=== PATIENT | male | born 1945 | race Caucasian/White ===

== ENCOUNTER 2025-07-08 08:52 | Outpatient (AMB) | payer MEDICARE, BC, SELFPAY ==
--- OUTSIDE RECORDS SUMMARY | 2024-06-01 07:18 | XMS_ITS | Encounter Summary ---
Author Organization [facility] [place] [address] Care Team Providers Care Cake Washer Name Role Phone Rodrigo Winston MD Primary Care Provider [phone] Encounter Details Date Type Department Care Team ([facility] st Contact Info) Description 06/01/2024 8:18 AM EDT Hospital Encounter TH HISTORIC ENCOUNTERS EASTERN CONVERSION ONLY Barron Whitten MD [address] [facility] [address] [place] [address] Social History Tobacco Use Types [...] care for your loved ones. For example, childhood development teacher or elderly care for an older adult? [...] Care Team (Late st Contact Info) Description 07/19/2025 4:30 PM EST Office Visit Endocrinology - [address] [address] Anna Rodriguez PA [address] [place] [address] 07/26/2025 1:30 PM EST Office Visit Internal Medicine - [address] [address] Roxana Correa NP [address] [place] [address] 11/17/2025 11:00 AM EDT Ancillary Procedure [facility] - [facility] [address] [facility] [address] [place] [address] 03/09/2026 11:30 AM EDT Office Visit Vascular Surgery - [place] 300 [facility] [address] [place] [address] Guicho Russell MD [address] [place] [phone] Scheduled Procedures Name Priority Associated Diagnoses Date/Ti me EXCISION LESION EAR Basal cell carcinoma, face REPAIR LACERATION Basal cell carcinoma, face documented as of this encounter Visit Diagnoses Not on filedocumented in this encounter Care Teams Cake Washer Relationship Specialty Start Date End Date Rodrigo Winston MD PCP - General Internal Medicine 09/08/19 02/28/25 documented as of this encounter
--- OUTSIDE RECORDS SUMMARY | 2024-08-03 09:15 | XMS_ITS ---
Author Organization [facility] Address [address] [place] [address] Care Team Providers Care Slimer Name Role Phone Lalita Cintron Primary Care Provider Chacha Allen [phone] Ang Encounters Encounter Location Date Provider Diagnosis [address] [address] 08/03/2024 Chacha Lo Plan Of Treatment Next Appt Details Provider Name:Chacha ac, 07/26/2025 11:00:00 AM, [address] [place] [address], [phone], Progress Notes * Gm BARBA RDOB: [birth year] (79 yo M)Acc No.[id number]:08/03/2024 Progress Note Patient: Rudy Gm BELTRÁN Provider: Elva Lo DPM :1945 A ge:78 [...] Sign off status: Pending * Provider: Elva Lo DPM Date: 10/04/2023 Generated for Carlos garcia/Aga/Margy on: 09/07/2024 08:58 AM EST
--- NOTE | 2025-07-08 08:51 | A.PHYSOV_ITS ---
Vital Signs 07/08/25 08:56 Height 6 ft Weight 18 lb BMI 2.4 BP 140/71 H Intake Visit Reasons: Left Lumbar TFE L4 Intake Note: Patient is a 79 year old male in office today for Left L4 Transforaminal Epidural Injection. 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 Skin over lumbosacral area was prepped and draped in usual sterile manner. Left L4 pedicle was visualized utilizing fluoroscopy. Five inch 22 gauge spinal needle was introduced percutaneously and advanced towards the pedicle at about 6 o'clock position. Once level of neural foramina was reached, needle placement was verified utilizing 3 cc of Omnipaque contrast solution. Excellent flow through the neural foramina and epidural spread was identified without evidence of vascular uptake. Total volume of 6 cc containing 2 cc of 1% lidocaine, 40 mg of triamcinolone and normal saline solution were injected after negative aspiration for blood and cerebrospinal fluid. Radiation exposure was documented in the chart. Lumbar transforaminal Epidural Steroid Inj- use with FL Gd: 51888 - Single Procedure code (CPT) selection complete Office Meds Kenalog 40 mg/mL suspension for injection Performing Provider: David Qureshi DO [place]forming [place] [facility] [place] [facility] Administered by: David Qureshi DO on 07/08/25 08:54 Dose Route Admin Location Dispensed Lot Number Expiration Date [facility] [employer] 40 mg epidural 1 mL [address]-2 [employer] Total Dispensed Waste 1 mL 0 % lidocaine (PF) 10 mg/mL (1 %) injection solution Performing Provider: David Qureshi DO Performing Location: [facility] Administered by: David Qureshi DO on 07/08/25 08:54 Dose Route Admin Location Dispensed Lot Number Expiration Date [facility] [employer] 40 mg epidural 5 mL [id number] [place] [employer] Total Dispensed Waste 5 mL 20 % Omnipaque 300 300 mg iodine/mL intravenous solution Performing Provider: David Qureshi DO Performing Location: [facility] Administered by: David Qureshi DO on 07/08/25 08:54 Dose Route Admin Location Dispensed Lot Number Expiration Date [facility] [employer] Professor 3 mL epidural 10 mL [id number] [facility] Total Dispensed Waste 10 mL 70 % Assessment & Plan Assessment & Plan (1) Lumbar radiculitis: Code(s): M54.16 - Radiculopathy, lumbar region Category: Medical Plan: Left L4 TFESI (2) History of heart surgery: Code(s): Z98.890 - Other specified postprocedural states Plan: Left L4 TFESI Plan Left L4 TFESI Orders: Orders FL Gd Lumbar Transforaminal In Today M54.16 - Radiculopathy, lumbar region AMB Lumbar transforaminal Epidural Steroid Injection Today M54.16 - Radiculopathy, lumbar region Coding Level of Care Code Procedure Only Diagnoses Lumbar radiculitis M54.16 History of heart surgery Z98.890 CPT Codes Lumbar transforaminal Epidural Steroid I - CPT TRANSFORM: 17973 - Single ([id number])
[2025-07-08 08:56] VITALS: BP 140/71
--- OUTSIDE RECORDS SUMMARY | 2025-07-08 08:58 | XMS_ITS | Encounter Summary ---
Author Organization [facility] Address [address] [place] [address] Care Team Providers Care Furniture Upholsterer Apprentice Name Role Phone Lalita Cintron MD Primary Care Provider [phone] Reason for Visit * Reason Onset Date Comments DME Request 07/05/2025 [employer] Encounter Details Date Type Department Care Team (Late st Contact Info) Description 07/05/2025 Telephone Internal Medicine - [facility] [address] [place], [place] [phone] Lalita Cintron MD [address] [facility] [place] Social History Tobacco Use Types Packs/Day Years [...] care for your loved ones. For example, early childhood lead teacher or elderly care for an older [...] PM EST documented as of this encounter Progress Notes * Rusty Briones [place] - 07/06/2025 3:14 PM EST Durable medical equipment prescription request has been faxed to the DME Company :[employer] / diabetic shoes With cover sheet, demographics and nay notes Confirmation was received * Carla George - 07/05/2025 3:31 PM EST Orders from [employer] placed in DME bin. Please complete and fax back to [phone]. Thank you. documented in this encounter Plan of Treatment Upcoming Encounters Date Type Department Care Team (Late st Contact Info) Description 07/19/2025 4:30 PM EST Office Visit Endocrinology - [address] [address] Anna Rodriguez PA [address] [place] [address] 07/26/2025 1:30 PM EST Office Visit Internal Medicine - [address] [address] Roxana Correa NP [address] [place] [address] 11/17/2025 11:00 AM EDT Ancillary Procedure [facility] - [facility] [address] [facility] [address] [place] [address] 03/09/2026 11:30 AM EDT Office Visit Vascular Surgery - [place] [address] [facility] [address] [place] [address] Guicho Russell MD [address] [place] [phone] Scheduled Procedures Name Priority Associated Diagnoses Date/Ti me EXCISION LESION EAR Basal cell carcinoma, face REPAIR LACERATION Basal cell carcinoma, face documented as of this encounter Visit Diagnoses Not on filedocumented in this encounter Additional Health Concerns Assessment Noted Time PHQ-9 Depression Total Score: 0 12/30/19 9:51 AM EDT documented as of this encounter Care Teams Furniture Upholsterer Apprentice Relationship Specialty Start Date End Date Lalita Cintron MD [address] [facility] [place] [phone] PCP - General Internal Medicine 03/01/25 documented as of this encounter
--- OUTSIDE RECORDS SUMMARY | 2025-07-08 08:58 | XMS_ITS | Clinical Summary ---
Author Organization 175 [facility] Address [address] [place] [address] Phone Care Team Providers Care Health Program Specialist Name Role Phone Lalita Cintron MD Primary Care Provider [phone] Allergies Active Allergy Reactions Criticality Noted Date Comments House Dust 12/18/2018 Other reaction(s): UNKNOWN Mold 08/01/2021 Other 08/01/2021 Seasonal Allergies Pollen Extracts Hives 06/24/2024 Tree Pollen-Norton, White 03/03/2025 Medications blood-glucose meter kit 1 Kit by Does not apply route daily. Use to check blood sugar Dx E11.29 024 Active docusate sodium (COLACE) 100 mg tablet Take 1 Tablet by mouth as needed. - Active fluticasone propionate (FLONASE) 50 mcg/actuation nasal spray USE 1 SPRAY NASALLY DAILY 022 Active FreeStyle Test test strip glucose blood test strips (FREESTYLE TEST STRIPS) strip TEST 3 TIMES DAILY 024 Active pen needle, diabetic 31 gauge x 5/16 needle Insulin Pen Needle (B-D ULTRAFINE III SHORT PEN) 31G X 8 MM Misc Use to inject basaglar twice daily 020 Active insulin syringe-needle U-100 1 mL 30 gauge x 1/2 syringe Insulin Syringe-Needle U-100 (B-D INS SYR ULTRAFINE 1CC/30G) 30G X 1/2 1 ML Misc USE DIRECTED 015 Active mv-min/folic/K1 /lycopen/lutein (CENTRUM SILVER MEN ORAL) Multiple Vitamins-Minerals (Centrum Silver 50+Men) Tab Take 1 Tablet by mouth daily. Active polyethylene glycol (MIRALAX) 17 gram packet Take by mouth as needed. Active guaifenesin/pse udoephedrne HCl (MUCINEX D ORAL) PRN congestion Activ e zoledronic acid (RECLAST) 5 mg/100 mL piggybackIndica tions:Osteoporo sis, unspecified osteoporosis type, unspecified pathological fracture presence Infuse 100 mL (5 mg total) into a venous catheter 1 (one) time for 1 dose. 100 mL 024 Active Additional Information Patient not taking.Reported on 06/09/2025 tamsulosin (FLOMAX) 0.4 mg 24 hr capsule TAKE 1 CAPSULE DAILY 90 capsule 1 025 Active gabapentin (NEURONTIN) 300 mg capsule TAKE 1 CAPSULE AT BEDTIME 90 capsule Active acetaminophen (Tylenol 8 Hour) 650 mg 8 hr tablet Take 1 tablet (650 mg total) by mouth every 8 (eight) hours if needed for mild pain. Do not crush, chew, or split. Active insulin aspart (NovoLOG Flexpen U-100 Insulin) 100 unit/mL (3 mL) injection pen Inject 2-3 units sc at with meals 45 mL 025 Active amLODIPine (NORVASC) 5 mg tablet TAKE 1 TABLET DAILY 90 tablet 025 Active pantoprazole (PROTONIX) 40 mg EC tablet TAKE 1 TABLET ONCE DAILY; DO NOT CRUSH, CHEW, OR SPLIT 90 tablet 025 Active simvastatin (ZOCOR) 40 mg tablet TAKE 1 TABLET ONCE DAILY 90 tablet 025 Active Eliquis 5 mg tablet TAKE 1 TABLET TWICE A DAY 180 tablet 025 Active insulin glargine,hum.re c.anlog (Basaglar KwikPen U-100 Insulin) 100 unit/mL (3 mL) injection pen INJECT SUBCUTANEOUSLY 42 UNITS ONCE DAILY 45 mL 025 Active polyethylene glycol (Golytely) 236-22.74-6.74 -5.86 gram solution Take 4L by mouth once for one dose. May substitue any PEG. Starting at 2PM the day before your procedure drink 1 8oz glasses at your own pace until you complete half of the gallon. Finish half of the gallon at 8PM. 4000 mL Active bisacodyL (DULCOLAX) 5 mg EC tablet Take 2 tablets by mouth right before beginning bowel prep. See instructions provided by the office 2 tablet Active Additional Information Patient not taking.Reported on 06/09/2025 glucosamine/cho ndr caballero A sod (OSTEO BI-FLEX ORAL) Take by mouth. Activ e losartan-hydroC HLOROthiazide (Hyzaar) 100-25 mg per tablet Take 1 tablet by mouth 1 (one) time each day. Active aspirin 81 mg EC tablet Take 1 Tablet by mouth daily. 023 2024 Discontinued(P rescriber Discontinued) losartan-hydroC HLOROthiazide (Hyzaar) 100-12.5 mg per tablet Take 1 tablet by mouth 1 (one) time each day. 90 each 1 025 2024 Discontinued Active Problems Problem Noted Date Diagnosed Date Granulomatous disease, chronic 03/22/2025 Atherosclerosis of [place] ar teries of extremities with rest pain, right leg (CMS/HCC V24, CMS/HCC V28) 03/22/2025 Murmur, cardiac 03/22/2025 Polyp of colon 03/02/2025 Basal cell carcinoma, face 03/02/2025 History of basal cell carcinoma 03/02/2025 Anticoagulated on Eliquis 03/02/2025 PAD (peripheral artery disease) (CMS/HCC V24) Assessment & Plan (01/05/2025 5:10 PM EDT): Continue current regimen of aspirin, simvastatin. Patient is being monitored by vascular surgery. Coronary artery disease invo lving [place] coronary artery of [place] heart without angina pectoris 11/24/2023 Overview (01/19/2025): Cardiac catheterization August 2023 following abnormal nuclear stress test showing small area of ischemia in the inferolateral wall demonstrated mild luminal irregularities of the left main, LAD and RCA with a 90% stenosis of the first OM medical therapy recommended Assessment & Plan (06/09/2025 10:42 AM EDT): Patient has a history of coronary artery disease, he had a left heart catheterization prior to his TAVR. Cardiac catheterization revealed 90% stenosis in the proximal subsection of OM1. Rest of the coronary arteries were free from any significant disease. He continues with no chest discomfort or shortness of breath. At this time he will continue on Eliquis, statin and amlodipine. Current [place] guidelines, including those from the [place] [employer] and [place] [employer], recommend OAC monotherapy (preferably with a DOAC) over combination therapy in patients with AF and stable CAD, unless there is a specific indication for APT such as recent stent thrombosis. Aspirin should be discontinued after 1 year post-PCI in these patients. As such, aspirin will be stopped today. Patient advised to seek emergency medical attention by calling 911 if they were to develop severe dyspnea, chest pain that did not resolve with rest or nitroglycerin, or if they were to faint. Assessment & Plan (02/02/2025 7:25 AM EDT): Catheterization from 2023 showed isolated 90% stenosis of OM1 with no other significant disease. Echocardiogram from 2024 showed preserved LV systolic function. No anginal symptoms. Continue with aspirin, simvastatin, amlodipine, losartan- HCTZ and apixaban. We discussed risk reduction through lifestyle choices including healthy diet, routine exercise and weight management. Orders: ECG 12 lead Pacemaker 11/24/2023 Overview (01/19/2025): October 2023 - successful placement of dual-chamber pacemaker Assessment & Plan (02/02/2025 7:25 AM EDT): Functioning well. No significant arrhythmias. Continue to monitor through [facility] device clinic. Paroxysmal atrial fibrillation (CMS/HCC V24, CMS /HCC V28) 11/24/2023 Assessment & Plan (06/09/2025 10:42 AM EDT): He has history of paroxysmal atrial fibrillation. He has an elevated chads Vascor of 5. He continues on Eliquis 5 mg twice daily. Will continue monitoring via the device. Assessment & Plan (02/02/2025 7:25 AM EDT): Detected on device. Asymptomatic. [id number] 5. Continue with apixaban. Assessment & Plan (06/30/2024 12:30 PM EST): Continue anticoagulation with apixaban. Rate controlled. Kidney lesion 11/04/2023 Overview (05/18/2024): 1.2 x 1.3 x 1.2 cm lesion lower pole left kidney. Referral to urology. Assessment & Plan (06/30/2024 12:30 PM EST): Being monitored by urology. Stable. S/p TAVR (transcatheter aort ic valve replacement), bioprosthetic 09/12/2023 Overview (01/19/2025): November 11, 2023 - successful transfemoral TAVR utilizing a 26 mm S3 bioprosthetic valve with Dr. Ramsey at [facility]; complication of brief heart block post deployment, but then no postoperative complications and the patient was discharged on aspirin monotherapy, placed on a Zio patch and found to have intermittent complete heart block status post implantation of a dual-chamber permanent pacemaker 11/24/24 TRANSTHORACIC ECHOCARDIOGRAM (TTE) COMPLETE (CONTRAST/BUBBLE/3D PRN) 11/30/2024 11/24/2024 Interpretation Summary Left Ventricle: Left ventricle cavity size is normal. There is mild concentric hypertrophy. Systolic function is normal with an ejection fraction of 60-65%. There are no regional LV wall motion abnormalities. There is Grade I (mild) diastolic dysfunction. Left Atrium: Left atrium cavity size is normal. Right Ventricle: Right ventricle cavity appears normal. Right Atrium: Right atrium cavity is normal. Aortic Valve: The valve has been surgically replaced. There is a 26mm mm TAVR bioprosthetic valve implanted on 11/11/2023. The prosthetic valve appears to be functioning normally. There is no regurgitation. Signed by: Maxi Ramsey MD on 11/30/2024 4:56 PM Assessment & Plan (06/09/2025 10:42 AM EDT): Patient has history of severe aortic stenosis status post TAVR. He has dentures, therefore not needing prophylaxis prior to dental cleanings. He continues on Eliquis. His most recent echocardiogram shows that his valve is in the correct position and functioning normally. Assessment & Plan (02/02/2025 7:25 AM EDT): Successful TAVR using 26 mm S3 Bioprosthetic valve on 11/11/23. The patient continues to enjoy symptomatic improvement following his TAVR. His valve is working well on exam, by echocardiogram and by symptoms. Instructed him about the need for prophylactic antibiotics prior to dental work. Assessment & Plan (01/05/2025 5:10 PM EDT): He is scheduled to follow-up with cardiology. Clinically is euvolemic. No changes to regimen of aspirin, simvastatin, amlodipine, losartan-hydrochlorothiazide. He is on full dose anticoagulation with Eliquis for history of atrial fibrillation. 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 08/01/2021 Diastolic dysfunction 07/27/2021 Diabetic retinopathy ([facility] V24, [facility] V28) 04/12/2021 Overview (05/18/2024): OD>OS [facility] Squamous cell carcinoma of scalp 04/18/2020 Microalbuminuria 08/14/2018 Type 2 diabetes mellitus wit h cataract ([facility] V24, [facility] V28) 05/11/2018 Assessment & Plan (06/30/2024 12:30 PM EST): Diabetic diet discussed. Patient will continue current regimen of insulin glargine, aspart. He is up-to-date with his diabetic eye exam. Orders: Hemoglobin A1c; Future Fernando's esophagus 04/30/2018 Assessment & Plan (01/05/2025 5:10 PM EDT): Continue pantoprazole. Referral to GI placed to determine next EGD. 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 Follow-up with GI and will be undergoing EGD and colonoscopy next year. GERD (gastroesophageal reflux disease) 8 Hyperlipidemia 04/30/2018 Assessment & Plan (06/09/2025 10:42 AM EDT): Continue on statin. I have reviewed with the patient the importance of a heart healthy lifestyle which includes eating a low-fat low-salt diet, getting regular exercise, maintaining a healthy weight, not smoking, and following up with routine medical care. Assessment & Plan (02/02/2025 7:25 AM EDT): Continue on simvastatin. Assessment & Plan (06/30/2024 12:30 PM EST): Follow low-cholesterol diet. Continue simvastatin. Hypertension 04/30/2018 Assessment & Plan (06/09/2025 10:42 AM EDT): Blood pressure is mildly elevated today, he recently had his hydrochlorothiazide increased to 25 mg from 12.5. He brings a log from home which shows overall good control. He will continue to monitor. Assessment & Plan (02/02/2025 7:25 AM EDT): Controlled. Continue with amlodipine, losartan-HCTZ. Assessment & Plan (06/30/2024 12:30 PM EST): Follow low-sodium diet. Continue amlodipine, losartan-hydrochlorothiazide. Stenosis, cervical spine 04/30/2018 Ataxic gait 12/23/2017 Allergic rhinitis 02/20/2017 Diverticulosis 02/20/2017 Vocal cord paralysis, unilateral partial 016 Calcification of lung 02/08/2015 Cataract 11/04/2013 Resolved Problems Problem Noted Date Diagnosed Date Resolved Date Aspirin long-term use 03/02/20252024 History of squamous cell carcinoma 03/02/2025 03/22/2025 Bacteremia due to Enterococcus 05/18/2024 03/22/2025 Sepsis ([facility] V24, [facility] V28) 05/18/2024 03/22/2025 Systemic inflammatory respon se syndrome ([facility] V24, [facility] V28) 05/18/2024 03/22/2025 Type 2 diabetes mellitus wit h hyperglycemia ([facility] V24, [facility] V28) 01/13/2024 03/22/2025 Gallbladder mass 11/25/2023 03/22/2025 Assessment & Plan (03/22/2025 1:42 PM EDT): Cholecystectomy and the mass was a soft squishy gallstone Abnormal echocardiogram 03/02/2021 0812/2024 Internal hemorrhoids 08/15/2014 025 Encounters Date Type Department Care Team Description 07/05/2025 Telephone Internal Medicine [facility] [address] [place] [address] Lalita Cintron MD 07/05/2025 Telephone Internal Medicine - [address] [place] [address] Lalita Cintron MD 06/24/2025 11:50 AM EST Ancillary Procedure [facility] Cardiology [facility] [address] [place] [address] 06/21/2025 Telephone Gastroenterology - [address] [place] [phone] Hamilton Curtis MD 06/21/2025 Telephone Internal Medicine - [address] [place] [address] Lalita Cintron MD 06/15/2025 Telephone Internal Medicine - [address] [place] [address] Claudette Gong RN 06/09/2025 9:10 AM EDT Office Visit [facility] Cardiology [facility] - [facility] [address] [place] [phone] Alona Johnson NP Coronary artery disease involving [place] coronary artery of [place] heart without angina pectoris (Primary Dx); Paroxysmal atrial fibrillation (CMS/HCC V24, CMS/HCC V28); S/p TAVR (transcatheter aortic valve replacement), bioprosthetic; Hypertension, unspecified type; Hyperlipidemia, unspecified hyperlipidemia type 05/24/2025 9:38 AM EDT - 05/24/2025 11:59 PM EDT Hospital Encounter [facility] MRI [address] [place] [phone] Neoplasm of uncertain behavior of left kidney Discharge Disposition: Home or Self Care 05/17/2025 Telephone Plastic & Reconstructive Surgery [facility] [address] [place] [phone] Rylie Rudolph SC 05/04/2025 1:26 PM EDT Anesthesia Event [facility] Endoscopy [address] [place] [phone] Mariano Díaz MD 05/04/2025 12:12 PM EDT - 05/04/2025 11:59 PM EDT Hospital Encounter [facility] Endoscopy [address] [place] [phone] Hamilton Curtis MD Saliga, Jesse L, MD Dusza, Sara, CRNA Polyp of colon, unspecified part of colon, unspecified type; Gastroesophageal reflux disease, unspecified whether esophagitis present; Fernando's esophagus without dysplasia; Diverticulosis Discharge Disposition: Home or Self Care 05/03/2025 Telephone General Surgery - [address] [place] [phone] Gentry Vyas DO 04/20/2025 Telephone Internal Medicine - [address] [place], [place] [phone] Lalita Cintron MD 04/19/2025 Telephone Internal Medicine - [address] [facility] [place], [place] [phone] Lalita Cintron MD 04/13/2025 Telephone Internal Medicine - [address] [place] [address] Lalita Cintron MD 04/07/2025 Telephone Gastroenterology - [place] [address] [place] [address] Shannan Montiel LPN from Last 3 Months Immunizations Immunization Administration Dates Next Due Influenza trivalent, 0.5mL ( Fluzone High-dose) 65yo and older 08/06/2023,08/01/2022,06/05/2021,06/02 Pfizer SARS-CoV-2 COVID-19, mRNA, LNP-S, preservative free 06/12/2021,10/14/2020,09/22/2020 Pneumococcal conjugate 13 va lent (Prevnar 13, PCV13) 2mo and older 10/18/2016 Pneumococcal polysaccharide 23 valent (Pneumovax 23) 2yo and older 11/10/2019 Surgical History Surgery Date Site/Laterality Comments OTHER SURGICAL HISTORY Left PROCEDURE: HISTORY OTHER; COMMENT: hip fracture repair LUMBAR LAMINECTOMY 03/17/2023 PROCEDURE: HISTORICAL LUMB LAMINECTOMY; COMMENT: L2-3 decompression, Dr. Gutierrez CERVICAL LAMINECTOMY PROCEDURE: HISTORICAL CERV LAMINECTOMY CATARACT EXTRACTION PROCEDURE: HISTORICAL CATARACT REMOVAL OTHER SURGICAL HISTORY Left PROCEDURE: VT ARTHRP ACETBLR/PROX FEM PROSTC AGRFT/ALGRFT OTHER SURGICAL HISTORY PROCEDURE: HISTORY OTHER; COMMENT: vocal cord surgery LUMBAR LAMINECTOMY 10/2017 PROCEDURE: HISTORICAL LUMB LAMINECTOMY; COMMENT: s/p lumbar decompression at L3-4, L4-5, and L5-S1 with Dr. Rockwell CHOLECYSTECTOMY PROCEDURE: VT LAPAROSCOPY SURG CHOLECYSTECTOMY Medical History Medical History Date Comments Allergic rhinitis 02/20/2017 DX:Allergic rh initis Ataxic gait 12/23/2017 DX:Ataxic gait Fernando's esophagus 04/30/2018 DX:Fernando's esophagus Calcification of lung 02/08/2015 DX:Calcifi cation of lung Cataract 11/04/2013 DX:Cataract Diverticulosis 02/20/2017 DX:Diverticulosi s GERD (gastroesophageal reflu x disease) 04/30/2018 DX:GERD (gastroesophageal re flux disease) Hyperlipidemia 04/30/2018 DX:Hyperlipidemi a Hypertension 04/30/2018 DX:Hypertension Internal hemorrhoids 08/15/2014 DX:Internal hemorrhoids Microalbuminuria 08/14/2018 DX:Microalbumin uria Stenosis, cervical spine 04/30/2018 DX:Sten osis, cervical spine Vocal cord paralysis, unilat eral partial 02/20/2016 DX:Vocal cord paralysis, uni lateral partial Diabetic retinopathy ([facility] V24, [facility] V28) 04/12/2021 DX:Diabetic retinopathy ([facility] ); COMMENT: OD>OS [facility] Other cardiomyopathies ([facility] V24, [facility] V28) DX:Other cardiomyopathies ([facility]); COMMENT: small heart blockages 02/2023 Diabetic neuropathy ([facility] V24, [facility] V28) DX:Diabetic neuropathy ([facility]) Chronic ischemic heart disease D X:Chronic ischemic heart disease Aortic valve stenosis DX:Aortic valve stenosis Kidney lesion 11/04/2023 DX:Kidney lesion ; COMMENT: 1.2 x 1.3 x 1.2 cm lesion lower pole left kidney. Abnormal gallbladder ultrasound DX:Abnormal gallbladder ultrasound Skin cancer DX:Skin cancer A-fib ([facility] V24, [facility] V28) DX:A-fib ([facility]) S/P TAVR (transcatheter aort ic valve replacement) DX:S/P TAVR (transcatheter a ortic valve replacement) Family History Medical History Relation Name Comments Other: myelitis Brother reverse myel itis Multiple sclerosis Daughter Coronary artery disease Father Other: Other Father exposed to [employer] [place] in [facility] Prostate cancer Father Heart attack Mother Hypertension Mother Cancer of Small Bowel Sister 1 Diabetes Sister 2 Dementia Sister 3 No Known Problems Son x2 Relation Name Status Comments Brother Alive Daughter Alive Father Mother Sister 1 Sister 2 Alive Sister 3 Alive Son x2 Alive Social History Tobacco Use Types Packs/Day Years Used Date Smoking Tobacco: Former Cigarettes Smokeless Tobacco: Never Tobacco Cessation:Counseling Given: Not Answered Alcohol Use Standard Drinks/Week Comments No 0 [...] for your loved ones. For example, child nutrition assistant or elderly care for an older adult? [...] Orientation Straight 09/16/2024 1: 46 PM EST Obstetrics History Last Filed Vital Signs Vital Sign Reading Time Taken Comments Blood Pressure 140/60 06/09/2025 9:32 AM EDT Pulse 65 06/09/2025 8:57 AM EDT Temperature 36.2 C (97.2 F) 05/04/2025 1:57 PM EDT Respiratory Rate 18 05/04/2025 2:17 PM EDT Oxygen Saturation 98% 06/09/2025 8:57 AM EDT Inhaled Oxygen Concentration - - Weight 84.8 kg (187 lb) 06/09/2025 8:57 AM EDT Height 182.9 cm (6') 06/09/2025 8:57 AM EDT Body Mass Index 25.36 06/09/2025 8:57 AM EDT Plan of Treatment Upcoming Encounters Date Type Department Care Team (Late st Contact Info) Description 07/19/2025 4:30 PM EST Office Visit Endocrinology [address] [phone] Anna Rodriguez PA [address] [place] [phone] 07/26/2025 1:30 PM EST Office Visit Internal Medicine - [address] [phone] Roxana Correa NP [address] [place] [phone] 11/17/2025 11:00 AM EDT Ancillary Procedure [facility] - [facility] [address] [facility] [address] [place] [phone] 03/09/2026 11:30 AM EDT Office Visit Vascular Surgery - [place] [address] [facility] [address] [place] [phone] Guicho Russell MD [address] [place] [phone] Scheduled Procedures Name Priority Associated Diagnoses Date/Ti me EXCISION LESION EAR Basal cell carcinoma, face REPAIR LACERATION Basal cell carcinoma, face Health Maintenance Due Date Last Done Comments Diabetes: Annual Foot Exam 1955 DTaP,Tdap,and Td Vaccines (1 - Tdap) 11/20/1963 Zoster Vaccines (1 of 2) 11/20/1963 Hepatitis B Vaccines (3 of 3 - Hep B Twinrix 3-dose series) 03/29/2007 10/27/2006, 09/22/2006 RSV Immunization Adult Patients (1 - 1-dose 75+ series) 11/20/2019 Medicare Annual Wellness Visit 07/27/2022 COVID-19 Vaccine ( season) 2025 06/12/2021, 10/14/2020, 09/22/2020 Influenza Vaccine (#1) 2025 , 08/01/2022, 06/05/2021, Additional history exists Social Influencers of Health Screening 07/08/2025 07/08/2024 Diabetes: Blood Sugar Control Test (HGBA1C) 07/20/2025 01/18/2025, 09/01/2024, 04/02/2024, Additional history exists Diabetes: Annual Retina Eye Exam 10/26/2025 10/26/2024 Diabetes: Annual Urine Albumin-Creatinine Ratio (uACR) 04/05/2026 04/05/2025, 07/30/2023 Diabetes: Annual GFR (Glomerular Filtration Rate) 04/05/2026 04/05/2025, 12/14/2024, 11/09/2024, Additional history exists Hypertension/CHF/CAD Annual BMP Blood Test 04/05/2026 04/05/2025, 12/14/2024, 11/09/2024, Additional history exists Falls Risk Assessment 05/04/2026 05/04/2025 Cholesterol Screening (Lipid Panel) 04/05/2030 04/05/2025, 07/30/2023 Colorectal Cancer Screening: Colonoscopy 05/04/2030 05/04/2025, 03/16/2024, 07/07/2019 Hepatitis A Vaccines Aged Out 10/27/2006, 09/22/19 07 No longer eligible based on patient's age to complete this topic Pneumococcal Vaccine: 50+ Years Completed 11/10/2019, 10/18/2016 Depression Screening Completed 03/16/2025 HIB Vaccines Aged Out No longer eligi ble based on patient's age to complete this topic HPV Vaccines Aged Out No longer eligi ble based on patient's age to complete this topic IPV Vaccines Aged Out No longer eligi ble based on patient's age to complete this topic MMR Vaccines Aged Out No longer eligi ble based on patient's age to complete this topic Meningococcal ACWY Vaccine Aged Out N o longer eligible based on patient's age to complete this topic Meningococcal B Vaccine Aged Out No l onger eligible based on patient's age to complete this topic RSV Immunization Patients Under 20 months Aged Out No longer eligible based on patient's age to complete this topic Varicella Vaccines Aged Out No longer eligible based on patient's age to complete this topic Medical Devices Implanted Type Area Head Coach Device Identifier Shelf Expiration Date Model / Serial / Lot [facility] 2272 Assurity Mri(Tm) [id number] Implanted: (Quantity not on file) Cardiac Pacemaker [employer] 2272 ASSURITY MRI(TM) / [id number] / Procedures Procedure Name Priority Date/Time Associated Diagnosis Comments CARDIAC DEVICE CHECK- REMOTE- MURJ Routine 06/24/2025 11:45 AM EST MR ABDOMEN WO AND W CONTRAST Routine 05/24/2025 10:55 AM EDT Neoplasm of uncertain behavior of left kidney COLONOSCOPY Routine 05/04/2025 1:56 PM EDT Polyp of colon, unspecified part of colon, unspecified type Gastroesophageal reflux disease, unspecified whether esophagitis present Fernando's esophagus without dysplasia Diverticulosis EGD Routine 05/04/2025 1:56 PM EDT Polyp of colon, unspecified part of colon, unspecified type Gastroesophageal reflux disease, unspecified whether esophagitis present Fernando's esophagus without dysplasia Diverticulosis TISSUE EXAM Routine 05/04/2025 1:34 PM EDT Polyp of colon, unspecified part of colon, unspecified type Gastroesophageal reflux disease, unspecified whether esophagitis present Fernando's esophagus without dysplasia Diverticulosis MICROALBUMIN CREATININE URINE RATIO Routine 04/05/2025 8:47 AM EDT Type 2 diabetes mellitus with diabetic microalbuminuria, with long-term current use of insulin ([facility] V24, [facility] V28) CREATININE, SERUM Routine 04/05/2025 8:4 7 AM EDT Osteoporosis, unspecified osteoporosis type, unspecified pathological fracture presence LIPID PANEL WITH REFLEX TO DIRECT LDL Routine 04/05/2025 8:47 AM EDT Type 2 diabetes mellitus with diabetic microalbuminuria, with long-term current use of insulin ([facility] V24, [facility] V28) HEMOGLOBIN A1C Routine 01/18/2025 2:10 PM EDT Type 2 diabetes mellitus with diabetic microalbuminuria, with long-term current use of insulin ([facility] V24, [facility] V28) from Last 3 Months or Most Recently Relevant to Health Maintenance Results * Cardiac device check - Remote- MURJ (06/24/2025 11:45 AM EST) Date Time Interrogation Session [id number] CV DEVICE CHECK Type Interrogation Session Remote Scheduled CV DEVICE CHECK Implantable Pulse Generator [employer] CV DEVICE CHECK Implantable Pulse Generator Type IPG CV DEVICE CHECK Implantable Pulse Generator Model 2272 Assurity MRI(TM) CV DEVICE CHECK Implantable Pulse Generator Serial Number [id number] CV DEVICE CHECK Implantable Pulse Generator Implant Date 20231114 CV DEVICE CHECK Battery Remaining Percentage 88.00 CV DEVICE CHECK Battery Remaining Longevity 112.0 CV DEVICE CHECK Battery Voltage 2.990 CV D EVICE CHECK Battery CAMPGROUND CARETAKER Trigger 2.600 CV DEVICE CHECK Battery Status Middle of Service CV DEVICE CHECK Angel Statistic RA Percent Paced 49.00 CV DEVICE CHECK Angel Statistic RV Percent Paced 99.00 CV DEVICE CHECK Atrial Tachy Statistic AT/AF Timblin Percent 1.00 CV DEVICE CHECK Lead Channel Sensing Intrinsic Amplitude 5.000 CV DEVICE CHECK Lead Channel Setting Sensing Sensitivity 0.30 CV DEVICE CHECK Lead Channel Impedance Value 540 CV DEVICE CHECK Lead Channel Pacing Threshold Amplitude 0.500 CV DEVICE CHECK Lead Channel Pacing Threshold Pulse Width 0.4 CV DEVICE CHECK Lead Channel RA Pacing Threshold Date 2025-06-09 CV DEVICE CHECK Lead Channel Setting Pacing Amplitude 1.500 CV DEVICE CHECK Lead Channel Setting Pacing Pulse Width 0.4 CV DEVICE CHECK Lead Channel Sensing Intrinsic Amplitude 0.500 CV DEVICE CHECK Lead Channel Setting Sensing Sensitivity 0.50 CV DEVICE CHECK Lead Channel Impedance Value 410 CV DEVICE CHECK Lead Channel Pacing Threshold Amplitude 0.625 CV DEVICE CHECK Lead Channel Pacing Threshold Pulse Width 0.4 CV DEVICE CHECK Lead Channel RV Pacing Threshold Date 2025-06-09 CV DEVICE CHECK Lead Channel Setting Pacing Amplitude 0.875 CV DEVICE CHECK Lead Channel Setting Pacing Pulse Width 0.4 CV DEVICE CHECK Angel Setting Mode (NBG Code) DDDR CV DEVICE CHECK Angel Setting Lower Rate Limit 60 CV DEVICE CHECK Angel Setting AT Mode Switch Rate 180 CV DEVICE CHECK Angel Setting Maximum Tracking Rate 120 CV DEVICE CHECK Angel Setting Maximum Sensor Rate 120 CV DEVICE CHECK Angel Setting PAV Delay 200 CV DEVICE CHECK Angel Setting LAY Delay 200 CV DEVICE CHECK Date of Service 2025-06-28 CV DEVICE CHECK Anatomical Region Laterality Modality Device Interroga tion 06/09/2025 2:00 AM EDT Impressions 06/24/2025 11:34 AM EST Normal Remote: No Events * Normal Device Function * Alerts or events: None * Battery: Battery is at 88%, 9.33 yrs * Sensing, impedance and thresholds reviewed * Programmed parameters reviewed * Presenting rhythm reviewed * Heart Rate Histograms reviewed * No significant changes noted Narrative Procedure Note Jerry Arriaga MD - 06/24/2025 IMPRESSION: Normal Remote: No Events * Normal Device Function * Alerts or events: None * Battery: Battery is at 88%, 9.33 yrs * Sensing, impedance and thresholds reviewed * Programmed parameters reviewed * Presenting rhythm reviewed * Heart Rate Histograms reviewed * No significant changes noted us Jerry Arriaga MD CV IMPLANTABLE CARDIAC DEVICE PROCEDURES Final Result * MR Abdomen wo and w Contrast (05/24/2025 10:55 AM EDT) Anatomical Region Laterality Modality Body Magnetic Resonan ce 05/26/2025 12:3 0 PM EDT Impressions 05/26/2025 12:47 PM EDT Stable 13 mm heterogeneously enhancing mass in the medial lower pole of the left kidney dating back to September 2017. -------- FINAL REPORT -------- Dictated By: Mandeep Elaine Dictated Date: 05/26/2025 12:30 ET Assigned Physician: Mandeep Elaine Reviewed and Electronically Signed By: Mandeep Elaine Signed Date: 05/26/2025 12:47 ET Workstation ID: [id number] Transcribed By: Self Edit Transcribed Date: 05/26/2025 12:30 ET Narrative 05/26/2025 12:47 PM EDT PROCEDURE: MRI of the abdomen with intravenous contrast. HISTORY: Kidney lesion. TECHNIQUE: Multiplanar multisequence MRI of the abdomen with and without intravenous contrast. IV contrast dose: 17 mL Dotarem from a 20 mL vial with 3 mL discarded. COMPARISON: CT angiogram dated 12/30/2024. MRI dated 06/01/2024. CT dated 09/25/2017. FINDINGS: LOWER THORAX: Normal. LIVER: No focal lesion. No evidence of steatosis on out of phase imaging. The portal and hepatic veins are patent. BILIARY: Cholecystectomy. Normal caliber biliary tree. No ductal dilatation or filling defect. PANCREAS: Prominent diffuse parenchymal atrophy. No focal lesion. No ductal dilatation. SPLEEN: Normal. ADRENAL GLANDS: Normal. KIDNEYS: There is a heterogeneously enhancing mildly T2 hyperintense lesion in the medial lower pole of the left kidney measuring approximately 13 mm in diameter. This is unchanged dating back to a comparison CT obtained in September 2012. Small bilateral cortical cysts. Small parapelvic cysts on the left. Irregular cortical thinning suggesting scarring in the lower pole on the right. Visible portions of the collecting systems are normal. RETROPERITONEUM: No mass or lymphadenopathy. VASCULATURE: Moderate atherosclerotic luminal irregularity of the aorta. No aneurysm. BOWEL/MESENTERY: Visible portions are normal. ABDOMINAL WALL: Visible portions are normal. BONES: Mild S-shaped lumbar scoliosis with multilevel endplate degenerative changes. No visible bony lesion. Procedure Note Mandeep Elaine MD - 05/26/2025 PROCEDURE: MRI of the abdomen with intravenous contrast. HISTORY: Kidney lesion. TECHNIQUE: Multiplanar multisequence MRI of the abdomen with and withoutintravenous contrast. IV contrast dose: 17 mL Dotarem from a 20 mL vial with 3 mL discarded. COMPARISON: CT angiogram dated 12/30/2024. MRI dated 06/01/2024. CTdated 09/25/2017. FINDINGS: LOWER THORAX: Normal. LIVER: No focal lesion. No evidence of steatosis on out of phase imaging.The portal and hepatic veins are patent. BILIARY: Cholecystectomy. Normal caliber biliary tree. No ductaldilatation or filling defect. PANCREAS: Prominent diffuse parenchymal atrophy. No focal lesion. Noductal dilatation. SPLEEN: Normal. ADRENAL GLANDS: Normal. KIDNEYS: There is a heterogeneously enhancing mildly T2 hyperintenselesion in the medial lower pole of the left kidney measuring [id number] mm in diameter. This is unchanged dating back to a comparison CTobtained in September 2012. Small bilateral cortical cysts. Smallparapelvic cysts on the left. Irregular cortical thinning suggestingscarring in the lower pole on the right. Visible portions of thecollecting systems are normal. RETROPERITONEUM: No mass or lymphadenopathy. VASCULATURE: Moderate atherosclerotic luminal irregularity of the aorta.No aneurysm. BOWEL/MESENTERY: Visible portions are normal. ABDOMINAL WALL: Visible portions are normal. BONES: Mild S-shaped lumbar scoliosis with multilevel endplatedegenerative changes. No visible bony lesion. IMPRESSION: Stable 13 mm heterogeneously enhancing mass in the medial lower pole ofthe left kidney dating back to September 2017. -------- FINAL REPORT -------- Dictated By: Mandeep Elaine Dictated Date: 05/26/2025 12:30 ET Assigned Physician: Mandeep Elaine Reviewed and Electronically Signed By: Mandeep Elaine Signed Date: 05/26/2025 12:47 ET Workstation ID: [id number] Transcribed By: Self Edit Transcribed Date: 05/26/2025 12:30 ET us Brandee Flanagan NP IM MRI PROCEDURES Final Result * COLONOSCOPY Anesthesia - [facility]; [facility] ENDOSCOPY (05/04/2025 1:56 PM EDT) Anatomical Region Laterality Modality Other 05/04/2025 1:38 PM EDT Impressions 05/04/2025 1:56 PM EDT - Diverticulosis in the entire examined colon. - Internal hemorrhoids. - No specimens collected. Recommendation: - Repeat colonoscopy Deferred due to age. - Use fiber, for example Citrucel, Fibercon, Konsyl or Metamucil. Narrative 05/04/2025 1:56 PM EDT [facility] GI Patient Name: Bita Huerta Procedure Date: 05/04/2025 1:38 PM Date of : 1945 Age: 79 Gender: Male Note Status: Finalized Attending MD: Hamilton Curtis MD, Procedure Date No Time: 05/04/2025 Procedure: Colonoscopy Indications: High risk colon cancer surveillance: Personal history of colonic polyps Providers: Hamilton Curtis MD Referring MD: Hamilton Curtis MD Medicines: Propofol per Anesthesia Complications: No immediate complications. Estimated Blood Loss: Estimated blood loss: none. Procedure: Pre-Anesthesia Assessment: - ASA Grade Assessment: III - A patient with severe systemic disease. After I obtained informed consent, the scope was passed under direct vision. Throughout the procedure, the patient's blood pressure, pulse, and oxygen saturations were monitored continuously.The Colonoscope was introduced through the anus and advanced to the cecum, identified by appendiceal orifice and ileocecal valve. The colonoscopy was performed without difficulty. The patient tolerated the procedure well. The quality of the bowel preparation was adequate. Findings: The perianal and digital rectal examinations were normal. Multiple diverticula were found in the entire colon. Internal hemorrhoids were found during endoscopy. The hemorrhoids were Grade I (internal hemorrhoids that do not prolapse). Procedure Code(s): --- Professional --- G0105, Colorectal cancer screening; colonoscopy on individual at high risk Diagnosis Code(s): --- Professional --- Z86.010, Personal history of colonic polyps K64.0, First degree hemorrhoids K57.30, Diverticulosis of large intestine without perforation or abscess without bleeding CPT copyright 2020 [employer]. All rights reserved. The codes documented in this report are preliminary and upon cattle dehorner review may be revised to meet current compliance requirements. Hamilton Curtis MD 05/04/2025 1:56:50 PM This report has been signed electronically.Hamilton Curtis MD Number of Addenda: 0 Note Initiated On: 05/04/2025 1:38 PM Scope In: Scope Out: Endoscopy Department at [facility] - [address] [place] [phone] Procedure Note Hamilton Curtis MD - 05/04/2025 [facility] GI Patient Name: Bita Huerta Procedure Date: 05/04/2025 1:38 PM Date of : 1945 Age: 79 Gender: Male Note Status: Finalized Attending MD: Hamilton Curtis MD, Procedure Date No Time: 05/04/2025 Procedure: Colonoscopy Indications: High risk colon cancer surveillance: Personalhistory of colonic polyps Providers: Hamilton Curtis MD Referring MD: Hamilton Curtis MD Medicines: Propofol per Anesthesia Complications: No immediate complications. Estimated Blood Loss: Estimated blood loss: none. Procedure: Pre-Anesthesia Assessment: - ASA Grade Assessment: III - A patient with severe systemic disease. After I obtained informed consent, the scope was passed under direct vision. Throughout theprocedure, the patient's blood pressure, pulse, and oxygen saturations were monitored continuously.The Colonoscope was introduced through the anus and advanced to the cecum, identified by appendiceal orifice and ileocecal valve. The colonoscopy was performed without difficulty. The patient tolerated the procedure well. The quality of the bowel preparation was adequate. Findings: The perianal and digital rectal examinations were normal. Multiple diverticula were found in the entirecolon. Internal hemorrhoids were found during endoscopy.The hemorrhoids were Grade I (internal hemorrhoids thatdo not prolapse). Procedure Code(s): --- Professional --- G0105, Colorectal cancer screening; colonoscopy on individual at high risk Diagnosis Code(s): --- Professional --- Z86.010, Personal history of colonic polyps K64.0, First degree hemorrhoids K57.30, Diverticulosis of large intestine without perforation or abscess without bleeding CPT copyright 2020 [employer]. All rights reserved. The codes documented in this report are preliminary and upon cattle dehorner reviewmay be revised to meet current compliance requirements. Hamilton Curtis MD 05/04/2025 1:56:50 PM This report has been signed electronically.Hamilton Curtis MD Number of Addenda: 0 Note Initiated On: 05/04/2025 1:38 PM Scope In: Scope Out: Endoscopy Department at [facility] - [address] [place] [phone] IMPRESSION: - Diverticulosis in the entire examined colon. - Internal hemorrhoids. - No specimens collected. Recommendation: - Repeat colonoscopy Deferred due to age. - Use fiber, for example Citrucel, Fibercon, Konsylor Metamucil. Hamilton Curtis MD GI~PROCEDURE ORDERABLES Final Re sult * EGD Anesthesia - [facility]; [facility] ENDOSCOPY (05/04/2025 1:56 PM EDT) Anatomical Region Laterality Modality Other 05/04/2025 1:22 PM EDT Impressions 05/04/2025 1:38 PM EDT - Z-line irregular, 41 cm from the incisors. Biopsied. Recommendation: - Await pathology results. - Observe patient's clinical course. Narrative 05/04/2025 1:38 PM EDT [facility] GI Patient Name: Bita Huerta Procedure Date: 05/04/2025 1:22 PM Date of : 1945 Age: 79 Gender: Male Note Status: Finalized Attending MD: Hamilton Curtis MD, Procedure Date No Time: 05/04/2025 Procedure: Upper GI endoscopy Indications: Heartburn Providers: Hamilton Curtis MD Referring MD: Hamilton Curtis MD Medicines: Propofol per Anesthesia Complications: No immediate complications. Estimated Blood Loss: Estimated blood loss was minimal. Procedure: Pre-Anesthesia Assessment: - ASA Grade Assessment: II - A patient with mild systemic disease. After obtaining informed consent, the endoscope was passed under direct vision. Throughout the procedure, the patient's blood pressure, pulse, and oxygen saturations were monitored continuously.The Endoscope was introduced through the mouth, and advanced to the second part of duodenum. The upper GI endoscopy was accomplished without difficulty. The patient tolerated the procedure well. Findings: The Z-line was irregular and was found 41 cm from the incisors. Biopsies were taken with a cold forceps for histology. Estimated blood loss was minimal. Procedure Code(s): --- Professional --- 17129, Esophagogastroduodenoscopy, flexible, transoral; with biopsy, single or multiple Diagnosis Code(s): --- Professional --- K22.89, Other specified disease of esophagus R12, Heartburn CPT copyright 2020 [employer]. All rights reserved. The codes documented in this report are preliminary and upon cattle dehorner review may be revised to meet current compliance requirements. Hamilton Curtis MD 05/04/2025 1:38:34 PM This report has been signed electronically.Hamilton Curtis MD Number of Addenda: 0 Note Initiated On: 05/04/2025 1:22 PM Scope In: Scope Out: Endoscopy Department at [facility] - [address] [place] [phone] Procedure Note Hamilton Curtis MD - 05/04/2025 [facility] GI Patient Name: Bita Huerta Procedure Date: 05/04/2025 1:22 PM Date of : 1945 Age: 79 Gender: Male Note Status: Finalized Attending MD: Hamilton Curtis MD, Procedure Date No Time: 05/04/2025 Procedure: Upper GI endoscopy Indications: Heartburn Providers: Hamilton Curtis MD Referring MD: Hamilton Curtis MD Medicines: Propofol per Anesthesia Complications: No immediate complications. Estimated Blood Loss: Estimated blood loss was minimal. Procedure: Pre-Anesthesia Assessment: - ASA Grade Assessment: II - A patient with mild systemic disease. After obtaining informed consent, the endoscope was passed under direct vision. Throughout theprocedure, the patient's blood pressure, pulse, and oxygen saturations were monitored continuously.TheEndoscope was introduced through the mouth, and advanced tothe second part of duodenum. The upper GI endoscopy was accomplished without difficulty. The patienttolerated the procedure well. Findings: The Z-line was irregular and was found 41 cm fromthe incisors. Biopsies were taken with a cold forcepsfor histology. Estimated blood loss was minimal. Procedure Code(s): --- Professional --- 79790, Esophagogastroduodenoscopy, flexible, transoral; with biopsy, single or multiple Diagnosis Code(s): --- Professional --- K22.89, Other specified disease of esophagus R12, Heartburn CPT copyright 2020 [employer]. All rights reserved. The codes documented in this report are preliminary and upon cattle dehorner reviewmay be revised to meet current compliance requirements. Hamilton Curtis MD 05/04/2025 1:38:34 PM This report has been signed electronically.Hamilton Curtis MD Number of Addenda: 0 Note Initiated On: 05/04/2025 1:22 PM Scope In: Scope Out: Endoscopy Department at [facility] - [address] [place] [phone] IMPRESSION: - Z-line irregular, 41 cm from the incisors. Biopsied. Recommendation: - Await pathology results. - Observe patient's clinical course. 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 (See note.) - Esophageal squamous mucosa with rare intraepithelial eosinophils (maximum of 1 intraepithelial eosinophil in a high-power field and patchy reactive epithelial changes including basilar hyperplasia and mild spongiosis. - Gastric cardiac/fundic type mucosa with focal chronic inflammation. Note: The presence of intestinal metaplasia in the distal esophagus supports a diagnosis of Fernando esophagus in the setting of appropriate endoscopic findings. Clinical correlation is recommended. 05/05/2025 10:29 AM EDT [facility] Gross Description A. Esophagus, distal biopsies: Labeled esophagus distal . Received in formalin are three irregular pink-white mucosal tissue fragments, each measuring approximately 0.2 cm in greatest dimension, which are wrapped in paper and submitted in toto in one cassette, three pieces, multiple levels on one slide. FAISAL 05/05/2025 10:29 AM EDT [facility] Disclaimer Unless otherwise specified, all tissue is 10% NB formalin fixed and paraffin embedded. 05/05/2025 10:29 AM EDT [facility] Tissue Esophageal structure / Unknown 05/04/2025 1:34 PM EDT 05/04/2025 3:47 PM EDT Hamilton Curtis MD LAB PATHOLOGY ORDERABLES Final R esult [facility] [address] [place] [address], [place] [phone] * Lipid panel with reflex to direct LDL (04/05/2025 8:47 AM EDT) Cholesterol 150 0 - 200 mg/dL LAB CHEMISTRY METHOD 04/05/2025 12:40 PM EDT [facility] Triglycerides 115 0 - 150 mg/dL LAB CHEMISTRY METHOD 04/05/2025 12:40 PM EDT [facility] HDL 54 >=40 mg/dL LAB CHEMISTRY METHOD 04/05/2025 12:40 PM EDT [facility] LDL Calculated 73 0 - 100 mg/dL LAB CHEMISTRY METHOD 04/05/2025 12:40 PM EDT [facility] Comment:Estimated LDL Calcul ated using equation: Total cholesterol - HDL cholesterol - (Triglycerides/5) VLDL Cholesterol Leonel 23 mg/dL LAB CHEMISTRY METHOD 04/05/2025 12:40 PM EDT [facility] Non HDL Chol. (LDL+VLDL) 96 <145 mg/dL LAB CHEMISTRY METHOD 04/05/2025 12:40 PM EDT [facility] Chol/HDL Ratio 2.8 0.0 - 4.4 LAB CHEMISTRY METHOD 04/05/2025 12:40 PM EDT [facility] Blood Venous blood specimen / Unknown Venipuncture / Unknown 04/05/2025 8:47 AM EDT 04/05/2025 8:47 AM EDT Rodrigo Winston MD LAB BLOOD ORDERABLES Brandie l Result Performing Organization Address City/[facility]/ZIP Co de Phone Number [facility] [address] [place] [address], * (ABNORMAL) Microalbumin creatinine urine ratio (04/05/2025 8:47 AM EDT) Creatinine, Urine 111.0 mg/dL LAB CHEMISTRY METHOD 04/05/2025 1:47 PM EDT [facility] Microalb, Ur 29.9(H) 0.0 - 29.0 mg/L LAB CHEMISTRY METHOD 04/05/2025 1:47 PM EDT [facility] Microalb/Crea t Ratio 27 <30 mg/g creat LAB CHEMISTRY METHOD 04/05/2025 1:47 PM EDT [facility] Urine Urine specimen obtained by clean catch procedure / Unknown Non-blood Collection / Unknown 04/05/2025 8:47 AM EDT 04/05/2025 8:47 AM EDT Rodrigo Winston MD LAB URINE ORDERABLES Brandie l Result Performing Organization Address [facility]/ZIP Co de Phone Number [facility] [address] [place] [address], [place] [phone] * Creatinine, Serum (04/05/2025 8:47 AM EDT) Creatinine 0.79 0.70 - 1.30 mg/dL LAB CHEMISTRY METHOD 04/05/2025 12:37 PM EDT [facility] eGFR 90 >=60 mL/min/1. 73m2 LAB CHEMISTRY METHOD 04/05/2025 12:37 PM EDT [facility] Comment:Calculation based on the Chronic Kidney Disease Epidemiology Collaboration (CKD-EPI) equation refit without adjustment for race. Blood Venous blood specimen / Unknown Venipuncture / Unknown 04/05/2025 8:47 AM EDT 04/05/2025 8:47 AM EDT us Anna PASTRANA LAB BLOOD ORDERABLES Final Result Performing Organization Address City/[facility]/ZIP Co de Phone Number [facility] [address] [place] [address], [place] [phone] * (ABNORMAL) Hemoglobin A1c (01/18/2025 2:10 PM EDT) Hemoglobin A1C 6.9(H) <6.5 % LAB CHEMISTRY METHOD 01/19/2025 10:20 AM EDT [facility] Mean Bld Glu Estim. 151 mg/dL LAB CHEMISTRY METHOD 01/19/2025 10:20 AM EDT [facility] Blood Venous blood specimen / Unknown Venipuncture / Unknown 01/18/2025 2:10 PM EDT 01/18/2025 2:10 PM EDT Rodrigo Winston MD LAB BLOOD ORDERABLES Brandie l Result [facility] [address] [place] [address], [place] [phone] from Last 3 Months or Most Recently Relevant to Health Maintenance Insurance MEDICARE [facility] Advance Directives Documents on File Type Date Recorded Patient Publications Inspector Expl anation Health Care Decision (hx) 11/04/2017 AD NARANJO DIRECTIVE Health Care Decision (hx) 11/04/2017 AD NARANJO DIRECTIVE Health Care Decision (hx) 11/04/2017 AD NARANJO DIRECTIVE Health Care Decision (hx) 11/04/2017 AD NARANJO DIRECTIVE Health Care Decision (hx) 11/04/2017 AD NARANJO DIRECTIVE Health Care Decision (hx) 11/04/2017 AD NARANJO DIRECTIVE Health Care Decision (hx) 11/04/2017 AD NARANJO DIRECTIVE Health Care Decision (hx) 11/04/2017 AD NARANJO DIRECTIVE Health Care Decision (hx) 11/04/2017 AD NARANJO DIRECTIVE Health Care Decision (hx) 11/04/2017 AD NARANJO DIRECTIVE Health Care Decision (hx) 11/04/2017 AD NARANJO DIRECTIVE Health Care Decision (hx) 11/04/2017 AD NARANJO DIRECTIVE Health Care Decision (hx) 11/04/2017 AD NARANJO DIRECTIVE Health Care Decision (hx) 11/04/2017 AD NARANJO DIRECTIVE Health Care Decision (hx) 11/04/2017 AD NARANJO DIRECTIVE Health Care Decision (hx) 11/04/2017 AD NARANJO DIRECTIVE Health Care Decision (hx) 11/04/2017 AD NARANJO DIRECTIVE Health Care Decision (hx) 11/04/2017 AD NARANJO DIRECTIVE Health Care Decision (hx) 11/04/2017 AD NARANJO DIRECTIVE Health Care Decision (hx) 11/04/2017 AD NARANJO DIRECTIVE Health Care Decision (hx) 11/04/2017 AD NARANJO DIRECTIVE Health Care Decision (hx) 11/04/2017 AD NARANJO DIRECTIVE Health Care Decision (hx) 11/04/2017 AD NARANJO DIRECTIVE Health Care Decision (hx) 11/04/2017 AD NARANJO DIRECTIVE Health Care Decision (hx) 11/04/2017 AD NARANJO DIRECTIVE Health Care Decision (hx) 11/04/2017 AD NARANJO DIRECTIVE Health Care Decision (hx) 11/04/2017 AD NARANJO DIRECTIVE Health Care Decision (hx) 11/04/2017 AD NARANJO DIRECTIVE Health Care Decision (hx) 11/04/2017 AD NARANJO DIRECTIVE Health Care Decision (hx) 11/04/2017 AD NARANJO DIRECTIVE Health Care Decision (hx) 11/04/2017 AD NARANJO DIRECTIVE Health Care Decision (hx) 11/04/2017 AD NARANJO DIRECTIVE Health Care Decision (hx) 11/04/2017 AD NARANJO DIRECTIVE Health Care Decision (hx) 11/04/2017 AD NARANJO DIRECTIVE Health Care Decision (hx) 11/04/2017 AD NARANJO DIRECTIVE Health Care Decision (hx) 11/04/2017 AD NARANJO DIRECTIVE Health Care Decision (hx) 11/04/2017 AD NARANJO DIRECTIVE Health Care Decision (hx) 11/04/2017 AD NARANJO DIRECTIVE Health Care Decision (hx) 11/04/2017 AD NARANJO DIRECTIVE Health Care Decision (hx) 11/04/2017 AD NARANJO DIRECTIVE Health Care Decision (hx) 11/04/2017 AD NARANJO DIRECTIVE Health Care Decision (hx) 11/04/2017 AD NARANJO DIRECTIVE Health Care Decision (hx) 11/04/2017 AD NARANJO DIRECTIVE Health Care Decision (hx) 11/04/2017 AD NARANJO DIRECTIVE * Full Code - Default (Latest Code Status on File) Date Activated Date Inactivated Comments 11/09/2024 1:51 PM 11/09/2024 5:43 PM This is orde r is used when code status has not been discussed with the patient, or code status is otherwise unknown/unconfirmed To update the patient's code status, place a code status order. Do not modify or discontinue any currently active code status orders. * Full Code - Default Date Activated Date Inactivated Comments 11/09/2024 6:36 AM 11/09/2024 1:51 PM This is orde r is used when code status has not been discussed with the patient, or code status is otherwise unknown/unconfirmed To update the patient's code status, place a code status order. Do not modify or discontinue any currently active code status orders. Care Teams Health Program Specialist Relationship Specialty Start Date End Date Lalita Cintron MD [address] [place] [phone] PCP - General Internal Medicine 03/01/25
--- OUTSIDE RECORDS SUMMARY | 2025-07-08 08:58 | XMS_ITS | Patient Health Record ---
Author [facility] Address [address] [facility] [place] [address] Care Team Providers Care Disaster Recovery Manager Name Role Phone Lalita Cintron Primary Care Provider Chacha Allen Unavailable [phone] Allergies Allergen (clinical drug ingredient) Drug/Non Drug Allergy documented on EMR Reaction Allergy Type Onset Date Status Cat dander Cat Dander Unknown Allergy Active Dog dander Dog Dander Unknown Allergy Active Dust Mites Unknown Allergy Active Mold Unknown Allergy Active Results Component Value Reference Range Notes HEMOGLOBIN A1C (GLYCOHEMOGLO BIN) Reviewed date:11/30/2024 01:06:38 PM Interpretation: Performing Lab: Notes/Report: HEMOGLOBIN A1C % (HH) 7.2 HEMOGLOBIN A1C (GLYCOHEMOGLO BIN) Reviewed date:03/22/2025 11:28:35 AM Interpretation: Performing Lab: Notes/Report: HEMOGLOBIN A1C % (HH) 7.2 Reason For Referral No Information Medications Medication SIG (Take, Route, Frequency, Duration) Notes Start Date End Date Status oxyCODONE HCl Not-Ta timothy HumaLOG KwikPen 100 UNIT/ML Subcutaneous 03/15/2014 Not-Taking Lantus 100 UNIT/ML Subcutaneous 03/15/2014 Not-Taking Econazole Nitrate 1 % 1 application to affected area Externally Once a day hs; Duration: 30 days 02/09/2016 Not-Taking ZyrTEC Not-Taking Econazole Nitrate 1 % 1 application to affected area Externally Once a day hs; Duration: 30 days Not-Taking Econazole Nitrate 1 % 1 application to affected area Externally Once a day hs; Duration: 30 days Not-Taking Extra Depth Diabetic Shoes with 3 Pair Custom heat-molded multi-density innersoles for 1 year Dx: N ot-Taking Claritin Not-Taking Osteo Bi-Flex Adv Double St Active Omeprazole-Sodium Bicarbonate Not-Taking Diclofenac Potassium Not-Taking Pantoprazole Sodium 40 MG 1 tablet Orally Once a day Active NovoLOG Active Fluticasone Propionate Active Simvastatin 40 MG Orally Once a day 03/15/2014 Active amLODIPine Besylate 5 MG 1 tablet Orally Once a day 03/15/2014 Active Basaglar KwikPen Act justin Losartan Potassium-HCTZ 100-12.5 MG 1 tablet Orally Once a day 03/15/2014 Active Calcium Active Vitamin D Not-Taking Vitamin C Not-Taking Baclofen Not-Taking Vitamin E Not-Taking Levemir Not-Taking Rocephin Not-Taking Vitamin B Complex No t-Taking Vitamin A Not-Taking Centrum Silver Activ e Docusate Sodium Acti ve Lantus 80 ml Subcutaneous Not- Taking Extra Depth Orthopedic Shoes (1 Pair) with Customized Heat Molded Multidensity Innersoles (3 Pair) Dx: NIDDM/Polyneuropathy (E11.42), Hammertoe Foot Deformity (M20.41,M20.42), Preulcerative Skin Lesion(s) (L85.1); Duration: 365 days 03/22/2025 Active Ampicillin Sodium 10 GM as directed Intravenous Not-Taking Gabapentin 100 MG 1 capsule Orally Onc e a day; Duration: 30 day(s) Active Walker as directed Not-Taki ng MiraLax Active Mucinex Active Tamsulosin HCl 0.4 MG 1 capsule Orally O nce a day Active Aspir-81 Active eliquis 5 mg Active Vitamin D3 Active Immunizations Vaccine Route Administration Date Status Comme nts Influenza Unknown 08/26/2017 Refused Influenza Unknown 12/23/2017 Refused Influenza Unknown 08/04/2018 Refused Influenza Unknown 06/08/2019 Refused Influenza Unknown 04/19/2024 Administered COVID-19 Pfizer BioNTech Vaccine Unknown 09/22/2020 Administered #2 10/14/2020 COVID-19 Pfizer BioNTech Vaccine Unknown 10/14/2020 Administered Social History Tobacco Use: Social History Observation Description Date Details (start date - stop date) Never Smoker NA - NA Tobacco use other than smoking: Question Answer Notes Are you an other tobacco user? No Tobacco Control (Standard) Question Answer Notes Tobacco use: Nonsmoker Additional Findings: Tobacco non-user Current no nsmoker AUDIT-C (Standard) Question Answer Notes Did you have a drink containing alcohol in the p ast year? No Points 0 Interpretation Negative Section Notes: A1C 07/12/15 8.1 Flu Shot: None Eye Exam 01/2015 A1C 07/12/15 8.1 Flu Shot: None Eye Exam 01/2015 A1C 07/12/15 8.1 Flu Shot: None Eye Exam 01/2015 No flu shot or pneumonia lin t 05/10/16 No flu shot or pneumonia lin t 05/10/16 No flu shot or pneumonia lin t 05/10/16 No flu shot or pneumonia lin t No flu shot or pneumonia lin t No flu shot or pneumonia lin t No flu shot or pneumonia lin t No flu shot or pneumonia lin t No flu shot or pneumonia lin t No flu shot or pneumonia lin t No flu shot or pneumonia lin t No flu shot or pneumonia lin t No flu shot or pneumonia lin t No flu shot or pneumonia lin t No flu shot or pneumonia lin t No flu shot or pneumonia lin t No flu shot or pneumonia lin t Problems Problem Type SNOMED Code ICD Code Onset Dates Problem Status W/U Status Risk Notes Problem Acquired hammer toe of right foot (8830900261422307 ) Other hammer toe(s) (acquired), right foot (M20.41) Active confirmed Response to treatment, [facility] t Problem Acquired hammer toe of left foot (8364014394798008 ) Other hammer toe(s) (acquired), left foot (M20.42) [facility] Problem Polyneuropathy due to diabetes mellitus type I (506015144) Type 1 diabetes mellitus with diabetic polyneuropathy (E10.42) Active confirmed Problem Polyneuropathy due to type 2 diabetes mellitus (326496132) Type 2 diabetes mellitus with diabetic polyneuropathy (E11.42) Active confirmed Vital Signs Blood pressure diastolic 65 mm Hg 03/22/2025 Height 6 ft 2 in in 03/22/2025 Blood pressure systolic 135 mm Hg 03/22/2025 Weight 180 lbs 03/22/2025 BMI 23.11 kg/m2 03/22/2025 Procedures Procedure Date Ordered Date Performed Result Body Sit e 61921-WQXEKQG NAIL, 6 OR MORE 08/03/2024 N/A 29938-IHXY SKIN LESIONS, 2 TO 4 08/03/2024 N/A 70400-YWBIEHA NAIL, 6 OR MORE 11/30/2024 N/A 94122-HDLG SKIN LESIONS, 2 TO 4 11/30/2024 N/A Encounters Encounter Location Date Provider Diagnosis [address] [address] 08/03/2024 Chacha Lo Type 2 diabetes mellitus with diabetic polyneuropathy E11.42 and Tinea unguium B35.[address] [address] 11/30/2024 Chacha Lo Type 2 diabetes mellitus with diabetic polyneuropathy E11.42 ; Tinea unguium B35.1 ; Other hammer toe(s) (acquired), right foot M20.41 and Other hammer toe(s) (acquired), left foot M20.[address] [address] 03/22/2025 Chacha Lo Other hammer toe(s) (acquired), right foot M20.41 ; Other hammer toe(s) (acquired), left foot M20.42 ; Type 2 diabetes mellitus with diabetic polyneuropathy E11.42 and Tinea unguium B35.1 Assessments Encounter Date Diagnosis (ICD Code) Assessment Notes Treatment Notes Treatment Clinical Notes Section Notes 08/03/2024 Type 2 diabetes mellitus with diabetic polyneuropathy (ICD-10 - E11.42) 08/03/2024 Tinea unguium (ICD-10 - B35.1) 11/30/2024 Type 2 diabetes mellitus with diabetic polyneuropathy (ICD-10 - E11.42) 11/30/2024 Tinea unguium (ICD-10 - B35.1) 03/22/2025 Other hammer toe(s) (acquired), right foot (ICD-10 - M20.41) Patient Educated with: DIABETIC FOOT CARE INSTRUCTIONS. pdf (DIABETIC FOOT CARE INSTRUCTIONS. pdf) 03/22/2025 Other hammer toe(s) (acquired), left foot (ICD-10 - M20.42) 03/22/2025 Type 2 diabetes mellitus with diabetic polyneuropathy (ICD-10 - E11.42) 11/30/2024 Other hammer toe(s) (acquired), right foot (ICD-10 - M20.41) Response to treatment,Impro vement 11/30/2024 Other hammer toe(s) (acquired), left foot (ICD-10 - M20.42) Response to treatment,Impro vement 03/22/2025 Tinea unguium (ICD-10 - B35.1) Plan Of Treatment Pending Test Test Name Order Date X ray : Foot, right 3V 01/06/2015 X ray : Foot, right 3V 10/17/2020 47525-QPYWEGM NAIL, 6 OR MORE 04/21/2018 58475-EPWQWUC NAIL, 6 OR MORE 08/03/2024 30423-QEYVRNZ NAIL, 6 OR MORE 11/30/2024 81736-IDNXAMQ NAIL, 6 OR MORE 04/28/2015 83481-AYKIDVS NAIL, 6 OR MORE 05/13/2014 61914-BRBEPMT NAIL, 6 OR MORE 01/06/2015 84106-NJPHPQF NAIL, 6 OR MORE 08/04/2015 61732-PCSMPQU NAIL, 6 OR MORE 11/03/2015 27173-RYOPQHS NAIL, 6 OR MORE 02/09/2016 50010-CNNINEE NAIL, 6 OR MORE 08/23/2016 91757-QABPHMN NAIL, 6 OR MORE 05/10/2016 33807-RUAWAFM NAIL, 6 OR MORE 04/22/2017 76474-TQQQSMT NAIL, 6 OR MORE 08/26/2017 12173-PMYSEJZ NAIL, 6 OR MORE 12/23/2017 99205-XPHEOFD NAIL, 6 OR MORE 08/04/2018 40655-Mahktngm Plate 05/13/2014 41872-Lhvbrgsm Plate Each Additional 69799-UTWP SKIN LESIONS, OVER 4 04/28/20 15 83486-XOBB SKIN LESIONS, OVER 4 02/09/20 16 59322-WWOF SKIN LESIONS, OVER 4 11/03/19 16 80389-VBOS SKIN LESIONS, OVER 4 01/07/20 15 54409-VMQY SKIN LESIONS, OVER 4 12/09/19 19 59537-QOCR SKIN LESIONS, OVER 4 06/08/20 19 76505-MCDY SKIN LESIONS, OVER 4 12/28/19 20 58131-LXVC SKIN LESIONS, OVER 4 06/27/20 20 64493-XNOJ SKIN LESIONS, OVER 4 04/21/20 18 49963-CWCI SKIN LESIONS, OVER 4 12/24/19 18 13828-ZGDR SKIN LESIONS, OVER 4 08/26/19 18 76906-EJKC SKIN LESIONS, OVER 4 05/10/20 16 87636-PFAT SKIN LESIONS, OVER 4 08/23/19 17 12938-LIWO SKIN LESIONS, OVER 4 12/21/19 17 51107-YBLA SKIN LESIONS, OVER 4 04/22/20 17 45178-PNWC SKIN LESIONS, OVER 4 08/04/20 18 08075-NWOD SKIN LESIONS, OVER 4 04/24/20 21 63153-OCHM SKIN LESIONS, OVER 4 08/28/19 22 67231-UVVP SKIN LESIONS, 2 TO 4 12/01/19 25 45266-MVKC SKIN LESIONS, 2 TO 4 08/03/20 24 41330-YNNN SKIN LESIONS, 2 TO 4 08/04/20 15 07439-OKNT SKIN LESIONS, 2 TO 4 05/13/20 14 18734,E2516-FIU TENDON SHEATH/LIGAMENT 0 04/28/2015 33014,L4626-RJQ TENDON SHEATH/LIGAMENT 1 99237, J0702- Neuroma/Injection 06/17/20 14 Next Appt Details Provider Name:Chacha Kirkland osorio, 07/26/2025 11:00:00 AM, [address] [address], [place], [address], Insurance Providers Payer Name Payer Address Payer Phone Subscriber Number Group Number Insured Name Patient Relationship to Insured Coverage Start Date Coverage End Date Medicare National Govt Svcs Inc [address] [place] [address] [id number] Gm Barba Self - patient is the insured 4 [employer] [address] [place] [address] [id number] Gm Barba Self - patient is the insured Medical (General) History Medical History History ICD Code Arthritis Back,Hip,and Knee pain Cataracts Diabetes mellitus Hypercholesterolemia Hypertension Measles Mumps RSD Reflux Skin ulcer Surgical History Surgery Date(Month/Year) throat 2006 left hip replacement 03/01 spinal stenosis surgery 11/2017 back surgery 02/2019 back surgery 03/2023 eye surgery 04/2023 valve replacement 11/2023 pacemaker 11/2023 polyp 2023 Hospitalization History Reason Date(Month/Year) calcified artery,leg [place] [facility] [place] [facility], bacteria in bloodstream 20[facility] in [facility], 6 day stay 2023 [facility] Back surgery 02/2019 [facility]- Spinal Stenosis Sx 11/2017 [facility] - Total Hip Replacement left [facility]oscopy [place] Endoscopy 09/01 [facility]- Bone scan right foot 07/05/14 [facility]- MRI right foot 07/21/14 [facility]- Xrays right foot 07/02/14
--- OUTSIDE RECORDS SUMMARY | 2025-07-08 08:58 | XMS_ITS ---
Author Organization [address] [facility] Address [address] [place] [address] Phone Care Team Providers Care Lead Nitrate Processor Name Role Phone Lalita Cintron MD Primary Care Provider [phone] Active Problems Problem Noted Date Diagnosed Date Granulomatous disease, chronic 03/22/2025 Atherosclerosis of [place] ar teries of extremities with rest pain, [...] vascular surgery. Coronary artery disease invo lving [place] coronary artery of [place] heart without angina pectoris 11/24/2023 Overview (01/19/2025): [...] Current [place] guidelines, including those from the [place] [employer] and [place] [employer], recommend OAC monotherapy (preferably with [...] 7:25 AM EDT): Detected on device. Asymptomatic. [id number] 5. Continue with apixaban. Assessment & Plan [...] S3 bioprosthetic valve with Dr. Ramsey at [facility]; complication of brief heart block post [...] hemiblock 08/01/2021 Diastolic dysfunction 07/27/2021 Diabetic retinopathy ([facility] V24, [facility] V28) 04/12/2021 Overview (05/18/2024): OD>OS [facility] Squamous cell carcinoma of scalp 04/18/2020 Microalbuminuria 08/14/2018 Type 2 diabetes mellitus wit h cataract ([facility] V24, [facility] V28) 05/11/2018 Assessment & Plan (06/30/2024 12:30 [...] 016 Calcification of lung 02/08/2015 Cataract 11/04/2013 Current Treatment and Therapy Plans No current plan information found. Other Current Plans ZOLEDRONIC ACID ( RECLAST )??YEARLY* Plan Start Date:09/16/2024 Plan Provider:Pawan Cedillo MD Linked Problems Osteoporosis, unspecified os teoporosis type, unspecified pathological fracture presence Treatment Medications No medications scheduled. Past Treatment and Therapy Plans No past plan information found. Lifetime Dose Tracking * Chemical Lifetime Dose Automatic Entry Manual Entr y Radiation 295 mGy 0 mGy 295 mGy Fluoro Time 1.9 minutes 0 minutes 1.9 minutes Resolved Problems Problem Noted Date Diagnosed Date Resolved Date Aspirin long-term use 03/02/20252024 History of squamous cell carcinoma 03/02/2025 03/22/2025 Bacteremia due to Enterococcus 05/18/2024 03/22/2025 Sepsis ([facility] V24, [facility] V28) 05/18/2024 03/22/2025 Systemic inflammatory respon se syndrome ([facility] V24, [facility] V28) 05/18/2024 03/22/2025 Type 2 diabetes mellitus wit h hyperglycemia ([facility] V24, [facility] V28) 01/13/2024 03/22/2025 Gallbladder mass 11/25/2023 03/22/2025 Assessment & Plan (03/22/2025 1:42 PM EDT): Cholecystectomy and the mass was a soft squishy gallstone Abnormal echocardiogram 03/02/2021 08/12/2024 Internal hemorrhoids 08/15/2014 025
--- OUTSIDE RECORDS SUMMARY | 2025-07-08 08:58 | XMS_ITS | Encounter Summary ---
Author Organization [facility] Address [address] [place] [address] Care Team Providers Care Valet Service Attendant Name Role Phone Lalita Cintron MD Primary Care Provider [phone] Reason for Visit * Reason Onset Date Comments information needed 07/05/2025 Encounter Details Date Type Department Care Team (Late st Contact Info) Description 07/05/2025 Telephone Internal Medicine [place] [address] [place], [place] [phone] Lalita Cintron MD [address] [place], [place] Social History Tobacco Use Types Packs/Day [...] for your loved ones. For example, child adolescent psychiatrist or elderly care for an older adult? [...] as of this encounter Progress Notes * Blanka Shields [place] - 07/05/2025 9:47 AM EST Faxed * Gloria Mj - 07/05/2025 9:40 AM EST Negrita from [employer] is requesting OV notes from 03/22/25 to be faxed [phone]. Pt is being seen today documented in this encounter Plan of Treatment Upcoming Encounters Date Type Department Care Team (Late st Contact Info) Description 07/19/2025 4:30 PM EST Office Visit Endocrinology - [address] [address] Anna Rodriguez PA [address] [place] [address] 07/26/2025 1:30 PM EST Office Visit Internal Medicine - [address] [address] Roxana Correa NP [address] [place] [phone] 11/17/2025 11:00 AM EDT Ancillary Procedure [facility] [address] [facility] [address] [place] [address] 03/09/2026 11:30 AM EDT Office Visit Vascular Surgery - [place] [address] [facility] [address] [place] [address] Guicho Russell MD [address] [place] [phone] Scheduled Procedures Name Priority Associated Diagnoses Date/Ti me EXCISION LESION EAR Basal cell carcinoma, face REPAIR LACERATION Basal cell carcinoma, face documented as of this encounter Visit Diagnoses Not on filedocumented in this encounter Additional Health Concerns Assessment Noted Time PHQ-9 Depression Total Score: 0 12/30/19 9:51 AM EDT documented as of this encounter Care Teams Valet Service Attendant Relationship Specialty Start Date End Date Lalita Cintron MD [facility] [place] [address] PCP - General Internal Medicine 03/01/25 documented as of this encounter
--- OUTSIDE RECORDS SUMMARY | 2025-07-08 08:58 | XMS_ITS ---
Author Name [facility] Organization Unknown Care Team Organization Name Specialty Phone Email Start Date End Da te [facility] 04/06/2025 PodiatryCBekah dawson, Primary Care PodiatryCBekah dawson, Primary Care [facility] Rodrigo Winston Primary Care 06/25/2022 04/05/2024
--- OUTSIDE RECORDS SUMMARY | 2025-07-08 08:58 | XMS_ITS | Clinical Summary ---
Author Organization [facility] Address [address] [place] [address] Care Team Providers Care Maple Sugar Maker Name Role Phone Rodrigo Winston MD Primary Care Provider Un available Social History Tobacco Use Types Packs/Day Years Used Date Smoking Tobacco: Never Assessed Sex and Gender Information Value Date Recorded Sex Assigned at Not on file Legal Sex Male 1:01 PM EDT Gender Identity Not on file Sexual Orientation Not on file Plan of Treatment Health Maintenance Due Date Last Done Comments Advance Care Planning 1945 DTaP/Tdap/Td Vaccines (1 - Tdap) 11/20/1963 Pneumococcal Vaccines 50+ (1 of 1 - PCV) 1994 Zoster (Shingles) Vaccine (1 of 2) 1994 RSV Vaccine 50 years and old er and Patients (1 - 1-dose 75+ series) 11/20/2019 COVID-19 Vaccine ( - 2023-2 5 season) 2025 Hepatitis B Vaccines Aged Out No long er eligible based on patient's age to complete this topic Care Teams Maple Sugar Maker Relationship Specialty Start Date End Date Rodrigo Winston MD PCP - General
--- OUTSIDE RECORDS SUMMARY | 2025-07-08 08:58 | XMS_ITS | Clinical Summary ---
Author Organization [facility] Address [address] [place] [address] Care Team Providers Care Tobacco Curer Name Role Phone Rodrigo Winston MD Primary Care Provider [phone] Allergies Active Allergy Reactions Criticality Noted Date Comments Dust 12/18/2018 Other reaction(s): UNKNOWN Molds & Smuts 08/01/2021 [place]ull[place] 12/18/2018 Other reaction(s): UNKNOWN Medications Medication Sig Dispensed Refills Start Date End Date Status simvastatin (ZOCOR) tablet 40 mg Take 1 tablet (40 mg total) by mouth daily. 0 01/19/2009 Activ e losartan-hydrochlo rothiazide (HYZAAR) 100-25 MG per tablet Take 1 tablet by mouth daily. 0 02/28/2015 Active amLODIPine (NORVASC) tablet 10 mg Take 1 tablet (10 mg total) by mouth daily. 0 11/05/2010 Activ e pantoprazole (PROTONIX) 40 MG tablet Take 1 tablet (40 mg total) by mouth daily. 0 02/20/2023 Activ e fluticasone (FLONASE) 50 MCG/ACT nasal spray USE 1 SPRAY NASALLY DAILY 0 08/27/2021 Active tamsulosin (FLOMAX) 0.4 MG CAPS Take 1 capsule (0.4 mg total) by mouth every evening. 0 03/24/2023 Active Insulin Glargine (Basaglar KwikPen) 100 UNIT/ML SOPN INJECT SUBCUTANEOUSLY 35 UNITS IN THE MORNING AND 30UNITS AT BEDTIME 0 11/21/2022 Active insulin Aspart (NovoLOG PENFILL) 100 UNIT/ML 10-15 Units SC TID as needed with meals; Max 100 Units/day 0 06/05/2021 Active Calcium Carb-Cholecalcifer ol (Calcium 600+D) 600-10 MG-MCG TABS Calcium 600 + D TABS Refills: 0 Active 0 Active Docusate Sodium (DSS) 100 MG CAPS Twice A Day 0 12/22/2018 Active aspirin 81 MG EC tablet Take 1 tablet (81 mg total) by mouth daily. 0 03/11/2023 Activ e Active Problems Problem Noted Date Diagnosed Date Osteophyte 04/15/2023 Social History Tobacco Use Types Packs/Day Years Used Date Smoking Tobacco: Never Assessed Sex and Gender Information Value Date Recorded Sex Assigned at Male 04/15/2023 11:28 AM EDT Gender Identity Not on file Sexual Orientation Not on file Job Start Date Occupation Industry Not on file Not on file Not on file Last Filed Vital Signs Vital Sign Reading Time Taken Comments Blood Pressure 140/69 04/16/2023 10:24 AM EDT Pulse 67 04/16/2023 10:24 AM EDT Temperature 36.4 C (97.5 F) 04/16/2023 10:24 AM EDT Respiratory Rate 18 04/16/2023 10:24 AM EDT Oxygen Saturation 99% 04/16/2023 10:24 AM EDT Inhaled Oxygen Concentration - - Weight 91.2 kg (201 lb 1 oz) 04/16/2023 10:24 AM EDT Height - - Body Mass Index - - Plan of Treatment Health Maintenance Due Date Last Done Comments Depression Screening 1956 Preventative Health Evaluation 1962 DTap / Tdap / Td (1 - Tdap) 11/20/1963 Shingrix-Zoster Vaccine (1 o f 2) 1994 Fall Risk Assessment 2009 RSV Adult > 60+ Yrs or (1 - 1-dose 75+ series) 11/20/2019 COVID-19 Vaccine (2024-2 6 season) 2025 06/12/2021, 10/14/2020, 09/22/2020 Influenza Vaccine (#1) 2025 2, 06/05/2021, 06/02/2020 Pneumococcal Vaccine Completed 11/10/2019, 10/18/2016, 02/28/2015 Hepatitis B Vaccines Aged Out No long er eligible based on patient's age to complete this topic RSV Ped < 20 months Aged Out No longe r eligible based on patient's age to complete this topic Care Teams Tobacco Curer Relationship Specialty Start Date End Date Rodrigo Winston MD [address] [place] [address] PCP - General Internal Medicine 04/10/23
--- NOTE | 2025-07-08 09:00 | A.PHYSOV_ITS ---
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 Skin over lumbosacral area was prepped and draped in usual sterile manner. Left L4 pedicle was visualized utilizing fluoroscopy. Five inch 22 gauge spinal needle was introduced percutaneously and advanced towards the pedicle at about 6 o'clock position. Once level of neural foramina was reached, needle placement was verified utilizing 3 cc of Omnipaque contrast solution. Excellent flow through the neural foramina and epidural spread was identified without evidence of vascular uptake. Total volume of 6 cc containing 2 cc of 1% lidocaine, 40 mg of triamcinolone and normal saline solution were i njected after negative aspiration for blood and cerebrospinal fluid. Radiation exposure was documented in the chart. Lumbar transforaminal Epidural Steroid Inj- use with FL Gd: 37323 - Single Procedure code (CPT) selection complete Office Meds Kenalog 40 mg/mL suspension for injection Performing Provider: David Qureshi DO Performing Location[place] [facility] Administered by: David Qureshi DO on 07/08/25 08:54 Dose Route Admin Location Dispensed Lot Number Expiration Date [facility] Competitive Athlete 40 mg epidural 1 mL [address]-1 [employer] Total Dispensed Waste 1 mL 0 % lidocaine (PF) 10 mg/mL (1 %) injection solution Performing Provider: David Qureshi DO Performing Location: [facility] Administered by: David Qureshi DO on 07/08/25 08:54 Dose Route Admin Location Dispensed Lot Number Expiration Date [facility] Competitive Athlete 40 mg epidural 5 mL [id number] [place] [employer] Total Dispensed Waste 5 mL 20 % Omnipaque 300 300 mg iodine/mL intravenous solution Performing Provider: David Qureshi DO Performing Location: [facility] Administered by: David Qureshi DO on 07/08/25 08:54 Dose Route Admin Location Dispensed Lot Number Expiration Date [facility] Competitive Athlete 3 mL epidural 10 mL [id number] [facility] Total Dispensed Waste 10 mL 70 % Assessment & Plan Assessment & Plan (1) Lumbar radiculitis: Code(s): M54.16 - Radiculopathy, lumbar region Category: Medical Plan: Lumbar epidural Plan Lumbar epidural Orders: Orders FL Gd Lumbar Transforaminal In Today M54.16 - Radiculopathy, lumbar region AMB Lumbar transforaminal Epidural Steroid Injection Today M54.16 - Radiculopathy, lumbar region Coding Level of Care Code Procedure Only Diagnoses Lumbar radiculitis M54.16 CPT Codes Lumbar transforaminal Epidural Steroid I - CPT TRANSFORM: 48391 - Single ([id number])
== END 2025-07-08 09:14 | disposition home or self-care (01) ==
LOC: HO.HPHYS 08:52
PROVIDERS: PCP Internal Medicine; Visit Provider Physical Medicine & Rehabilitation
DX: M54.16 Radiculopathy, lumbar region (principal); Z98.890 Other specified postprocedural states
CPT/HCPCS: 64483

== ENCOUNTER 2025-07-08 08:52 | Outpatient (REF) | payer MEDICARE, BC, SELFPAY | END 2025-07-08 08:53 | disposition home or self-care (01) | LOC: HO.HPHYSR 08:52 | PROVIDERS: PCP Internal Medicine; Visit Provider Physical Medicine & Rehabilitation | DX: M54.16 Radiculopathy, lumbar region (principal); Z98.890 Other specified postprocedural states | CPT/HCPCS: 64483; J2003; J3301; Q9967 ==

== ENCOUNTER 2025-08-04 11:21 | Outpatient (AMB) | payer MEDICARE, BC, SELFPAY ==
--- OUTSIDE RECORDS SUMMARY | 2024-06-01 07:18 | XMS_ITS | Encounter Summary ---
Author Organization [facility] Address [address] [place] [address] Care Team Providers Care Soybean Specialties Cook Name Role Phone Rodrigo Winston MD Primary Care Provider [phone] Encounter Details Date Type Department Care Team ([facility] st Contact Info) Description 06/01/2024 8:18 AM EDT Hospital Encounter TH HISTORIC ENCOUNTERS EASTERN CONVERSION ONLY Barron hWitten MD [address] [facility] [address] [place] [address] Social History Tobacco Use Types Packs/Day Years Used Date Smoking Tobacco: Former Cigarettes Smokeless Tobacco: Never Alcohol Use Standard Drinks/Week Comments No 0 (1 standard drink = 0.6 oz pur e alcohol) Housing Instability Answer Date Recorde d Are you worried that in the next 2 months you may not have stable housing? No 07/08/2024 Food Access & Nutrition Answer Date Rec orded Do you have access to a vari ety of food including fruits and vegetables? Yes 07/08/2024 Access to Healthcare Answer Date Record ed Within the last 3 months, ho w many times did you visit the emergency department for your medical care? 1 07/08/2024 Health Literacy Answer Date Recorded How often do you need to hav e someone help you when you read instructions, pamphlets, or other written material from your doctor or pharmacy? Rarely 07/08/2024 Caregiver: How often do you need to have someone help you when you read instructions, pamphlets, or other written material from your doctor or pharmacy? Not on file 07/08/2024 Financial Risk Answer Date Recorded How hard is it for you to pa y for the very basics like food, housing, medical care, and air conditioning / heating? Not very hard 07/08/2024 Transportation Answer Date Recorded Has the lack of transportati on kept you from meetings, work, or from getting things needed for daily living? No Has the lack of transportati on kept you from medical appointments or from getting medications? No 07/08/2024 Social Isolation Answer Date Recorded How often do you feel lonely or isolated from th ose around you? Never 07/08/2024 Food Risk Answer Date Recorded Within the past 12 months we worried whether our food would run out before we got money to buy more. Never true 07/08/2024 Within the past 12 months th e food we bought just didn't last and we didn't have money to get more. Never true 07/08/2024 Dependent Care Answer Date Recorded Do you need help finding or paying for care for your loved ones. For example, child care worker or elderly care for an older adult? No 07/08/2024 Education Answer Date Recorded Do you think completing more education or training, like finishing a GED, going to college, or learning a trade, would be helpful for you? N/A 07/08/2024 Employment and Income Answer Date Recor ded During the last four weeks, have you been actively looking for work? No 07/08/2024 Living Situation Answer Date Recorded What is your living situation? Unrecognized valu e 07/08/2024 Interpersonal Safety Answer Date Record ed Physical Abuse Unrecognized value 05/04/2025 Verbal Abuse Unrecognized value 05/04/2025 Sex and Gender Information Value Date Recorded Sex Assigned at Male 09/16/2024 1:46 PM EST Legal Sex Male 4:47 PM EST Gender Identity Male 09/16/2024 1:46 PM EST Sexual Orientation Straight 09/16/2024 1: 46 PM EST documented as of this encounter Procedure Notes * Tania Duarte NP - 06/01/2024 10:06 AM EDT Procedure Note Encounter Date & Time 06/01/24 10:05 Procedure Note Pacemaker pulse generator programming pre and post-MRI, testing pre and post-MRI and monitoring for the duration of MRI. The patient has an Fu dual chamber pacemaker. The device was programmed to a DOO mode for the duration of MRI. There were no EKG issues during the MRI. Testing of the device post-MRI did not show any significant change in sensing lead impedances or pacing thresholds. IMPRESSION: Normal device function. TANIA DUARTE Jun 01, 2024 10:06 documented in this encounter Plan of Treatment Upcoming Encounters Date Type Department Care Team (Late st Contact Info) Description 11/17/2025 11:00 AM EDT Ancillary Procedure [facility] - [address] [facility] [address] [place] [address] 01/31/2026 1:00 PM EDT Office Visit Internal Medicine - [address] [address] Lalita Cintron MD [address] [place] [address] 03/09/2026 11:30 AM EDT Office Visit Vascular Surgery - [place] [address] [place] [address] Guicho Russell MD [address] [place] [phone] Scheduled Procedures Name Priority Associated Diagnoses Date/Ti me EXCISION LESION EAR Basal cell carcinoma, face REPAIR LACERATION Basal cell carcinoma, face documented as of this encounter Visit Diagnoses Not on filedocumented in this encounter Additional Health Concerns Infection Onset Date Last Indicated Resolved Time C. difficile Rule-Out 07/28/2025 07/28/20252024 3:21 PM EST documented as of this encounter Care Teams Soybean Specialties Cook Relationship Specialty Start Date End Date Rodrigo Winston MD PCP - General Internal Medicine 09/08/19 02/28/25 documented as of this encounter
--- OUTSIDE RECORDS SUMMARY | 2024-08-03 09:15 | XMS_ITS ---
Author Organization [facility] Address [address] [place] [address] Care Team Providers Care Predatory Game Hunter Name Role Phone Lalita Cintron Primary Care Provider Chacha Allen [phone] Ang Encounters Encounter Location Date Provider Diagnosis [address] [address] 08/03/2024 Chacha Lo Plan Of Treatment Next Appt Details Provider Name:Chacha ac, 11/29/2025 11:00:00 AM, [address] [place] [address], [phone], Progress Notes * Gm BARAB RDOB: [birth year] (79 yo M)Acc No.[id number]:08/03/2024 Progress Note Patient: Rudy PRINCENACHOGm Provider: Elva Lo DPM :1945 A ge:78 Y S ex:Male Date:08/03/2024 Address:[address], [place]-[address] Pcp:Lalita Cintron Subjective: * Chief Complaints: * [address] Ang[address] * Medical History: Objective: * Vitals: Assessment: Plan: * Treatment: * Images: * The named appointment provid er may or may not be the originator of this progress note, and it is not deemed complete until electronically signed by the appointment provider. Sign off status: Pending * Provider: Elva Lo, ESTELA Date: 10/04/2023 Generated for Carlos garcia/Aga/Margy on: 10/05/2024 02:55 PM EST
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
--- OUTSIDE RECORDS SUMMARY | 2025-07-30 10:15 | XMS_ITS | Encounter Summary ---
Author Organization [facility] Address [address] [place] [address] Care Team Providers Care Undergraduate Internship Name Role Phone Lalita Cintron MD Primary Care Provider [phone] Encounter Details Date Type Department Care Team (Latest Contact Info) Description 07/30/2025 10:15 AM EST Clinic Lab Collection Walk-In Clinic - [address] [phone] Diarrhea, unspecified type (Primary Dx) Social History Tobacco Use Types Packs/Day Years [...] care for your loved ones. For example, children's choir director or elderly care for an older adult? [...] as of this encounter Progress Notes * Verenice Carter - 07/30/2025 10:15 AM ESTAddended by: VERENICE CARTER on: 07/30/2025 10:07 AM Modules accepted: Orders * Verenice Carter - 07/30/2025 10:15 AM EST lab documented in this encounter Plan of Treatment Upcoming Encounters Date Type Department Care Team (Late st Contact Info) Description 11/17/2025 11:00 AM EDT Ancillary Procedure [facility] [address] [facility] [address] [place] [address] 01/31/2026 1:00 PM EDT Office Visit Internal Medicine - [facility] [address] [place], [place] [phone] Lalita Cintron MD [address] [place], [place] 03/09/2026 11:30 AM EDT Office Visit Vascular Surgery - [place] [address] [facility] [address] [place] [address] Guicho Russell MD [address] [place] [phone] Scheduled Procedures Name Priority Associated Diagnoses Date/Ti me EXCISION LESION EAR Basal cell carcinoma, face REPAIR LACERATION Basal cell carcinoma, face documented as of this encounter Procedures Procedure Name Priority Date/Time Associated Diagnosis Comments OVA AND PARASITE EXAMINATION Routine 07/30/2025 10:07 AM EST Diarrhea, unspecified type documented in this encounter Results * Ova and parasite examination (07/30/2025 10:07 AM EST) Ova and Parasite No Ova or Parasite seen. 08/04/2025 2:13 PM EST [facility] Stool Rectum structure / Unknown Non-blood Collection / Unknown 07/30/2025 10:07 AM EST 07/30/2025 10:07 AM EST Narrative [facility] - 08/04/2025 2:13 PM EST Special test request required for Coccidia and Microsporidia. Roxana Van [facility] MICROBIOLOGY - GENERAL O RDERABLES Final Result [facility] [address] [place] [address], documented in this encounter Visit Diagnoses Diagnosis Diarrhea, unspecified type- Primary Encounter for adjustment or management of cardiac device documented in this encounter Additional Health Concerns Assessment Noted Time PHQ-9 Depression Total Score: 0 12/30/19 9:51 AM EDT documented as of this encounter Care Teams Undergraduate Internship Relationship Specialty Start Date End Date Lalita Cintron MD [address] [place] [address] PCP - General Internal Medicine 03/01/25 documented as of this encounter
[2025-08-04 11:27] VITALS: BMI 24.4
--- NOTE | 2025-08-04 11:27 | A.PHYSOV_ITS ---
Vital Signs 08/04/25 11:27 Height 6 ft Weight 180 lb BMI 24.4 Intake Visit Reasons: F/U after injection 07/08/2025 Intake Note: Patient is a 79 year old male in office for a follow up after Left L4 Transforaminal Epidural Injection 07/08/25. Patient feels much better. Principal Engineer Required: No Allergies No Known Allergies Allergy (Verified 08/04/25 11:28) HPI Comments Details: History of Present Illness The patient is an 79 year old male presenting for a follow-up visit for persistent lower back pain and lumbar radiculitis. He has been having pain radiating to the left anterior thigh, with bilateral pain that is worse on the left. He reports a positive shopping cart sign and ambulates with a single point cane. A lumbar-sacral spine MRI was performed on July 23, 2022, which was consistent with L3-L4 central canal stenosis, bilateral neural foraminal stenosis at the L3-L4 level, and bilateral neural foraminal stenosis at the L4- L5 level. He underwent an L2-L3 decompression on March 17, 2023, by Dr. Gutierrez. The patient has been responding to left L4 transforaminal injections for his nerve pain. He is status post a repeat procedure on July 08, 2025. He continues to report same lower back pain, however left radicular symptoms improved 100%. Pain Description - Location: The patient experiences persistent lower back pain and bilateral pain radiating to the left anterior thigh, which is worse on the left side. - Quality: The pain is described as nerve pain or sciatica, which is distinct from the arthritis pain in his low back. - Relieving Factors: The patient reports relief with a positive shopping cart sign and has been responding to left L4 transforaminal injections for his nerve pain. - Associated Factors: The patient ambulates with a single point cane. Results - Lumbar sacral spine MRI (07/23/2022): Findings were consistent with L3-L4 central canal stenosis, bilateral neural foraminal stenosis at the L3-L4 level, and bilateral neural foraminal stenosis at the L4-L5 level. 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 - Genitourinary: Denies any change in bladder habits. - Gastrointestinal: Denies any change in bowel habits. - Musculoskeletal: Reports bilateral low back pain, worse on the left. - Neurological: Reports pain radiating to the left anterior thigh. Physical Exam Exam Exam: Physical Exam Patient appears to be in no acute distress. Gait was unsteady, however without antalgia. Lumbar extension was restricted. Dural tension signs were negative. Neurological examination was nonfocal. Heel walk and toe walk were not tested. Vital Signs: BMI result Body Mass Index 24.4 Assessment & Plan Assessment & Plan (1) Spinal stenosis, lumbar region with neurogenic claudication: Code(s): M48.062 - Spinal stenosis, lumbar region with neurogenic claudication Category: Medical (2) Lumbar radiculitis: Code(s): M54.16 - Radiculopathy, lumbar region Category: Medical Plan Pain Management - Analgesia: The patient reports that left L4 transforaminal injections provide significant relief for his radiating nerve pain. - Activities of Daily Living: The patient ambulates with a single point cane and reports that his back hurts when standing for periods, such as at the check-in kiosk. Plan Patient was informed and verbally consented to the use of an ambient scribe for clinic note documentation during this visit. 1. Lumbar Radiculopathy The patient continues to have radicular pain consistent with MRI findings and reports significant relief from left L4 transforaminal injections. He will continue with this treatment. Per his request, the interval between injections will be extended from three to four months. The next procedure will be scheduled for mid-October, and the office will call him to arrange the appointment. 2. Low Back Pain The patient's low back pain is attributed to arthritis and is not expected to respond to the transforaminal injections he receives for his radicular symptoms. No change in management for his axial back pain was discussed. Discussion Notes I discussed with the patient that his transforaminal injections are intended to treat his nerve pain, or sciatica, and not the arthritic pain in his low back. He confirmed the injections provide significant relief for his radicular symptoms and wishes to continue them. We agreed to extend the interval between treatments to four months, with the next injection planned for mid-October. I informed the patient that our office will call him to schedule the procedure and advised him to call if his symptoms worsen before then. Patient Instructions - We will continue treating your radiating leg pain with injections, as they seem to be helping. - Your next injection will be scheduled for approximately four months from your last one, around mid-October. - Our office will call you to schedule the appointment for this procedure. - Please call our office if your pain gets worse before your next scheduled appointment. Coding Level of Care Code Est Pt Level 4 (77482) Diagnoses Spinal stenosis, lumbar region with neurogenic claudication M48.062 Lumbar radiculitis M54.16
--- OUTSIDE RECORDS SUMMARY | 2025-08-04 14:56 | XMS_ITS | Clinical Summary ---
Author Organization 175 [facility] Address [address] [place] [address] Phone Care Team Providers Care Windows Application Administrator Name Role Phone Lalita Cintron MD Primary Care Provider [phone] Allergies Active Allergy Reactions Criticality Noted Date Comments House Dust 12/18/2018 Other reaction(s): UNKNOWN Mold 08/01/2021 Other 08/01/2021 Seasonal Allergies Pollen Extracts Hives 06/24/2024 Tree Pollen-[place], White 03/03/2025 Medications fluticasone propionate (FLONASE) 50 mcg/actuation nasal spray USE 1 SPRAY NASALLY DAILY 08/27/19 22 Active pen needle, diabetic 31 gauge x 5/16 needle Insulin Pen Needle (B-D ULTRAFINE III SHORT PEN) 31G X 8 MM Misc Use to inject basaglar twice daily 11/17/19 20 Active insulin syringe-needle U-100 1 mL 30 gauge x 1/2 syringe Insulin Syringe-Needle U-100 (B-D INS SYR ULTRAFINE 1CC/30G) 30G X 1/2 1 ML Misc USE DIRECTED 01/26/20 15 Active mv-min/folic/K1/ lycopen/lutein (CENTRUM SILVER MEN ORAL) Multiple Vitamins-Minerals (Centrum Silver 50+Men) Tab Take 1 Tablet by mouth daily. Active guaifenesin/pseu doephedrne HCl (MUCINEX D ORAL) PRN congestion Active zoledronic acid (RECLAST) 5 mg/100 mL piggybackIndicat ions:Osteoporosi s, unspecified osteoporosis type, unspecified pathological fracture presence Infuse 100 mL (5 mg total) into a venous catheter 1 (one) time for 1 dose. 100 mL 07/20/20 Active tamsulosin (FLOMAX) 0.4 mg 24 hr capsule TAKE 1 CAPSULE DAILY 90 capsule 1 08/31/19 25 Active acetaminophen (Tylenol 8 Hour) 650 mg 8 hr tablet Take 1 tablet (650 mg total) by mouth every 8 (eight) hours if needed for mild pain. Do not crush, chew, or split. Active insulin aspart (NovoLOG Flexpen U-100 Insulin) 100 unit/mL (3 mL) injection pen Inject 2-3 units sc at with meals 45 mL 04/13/20 25 Active amLODIPine (NORVASC) 5 mg tablet TAKE 1 TABLET DAILY 90 tablet 04/13/20 25 Active pantoprazole (PROTONIX) 40 mg EC tablet TAKE 1 TABLET ONCE DAILY; DO NOT CRUSH, CHEW, OR SPLIT 90 tablet 04/13/20 25 Active simvastatin (ZOCOR) 40 mg tablet TAKE 1 TABLET ONCE DAILY 90 tablet 04/13/20 25 Active Eliquis 5 mg tablet TAKE 1 TABLET TWICE A DAY 180 tablet 04/13/20 25 Active insulin glargine,hum.rec .anlog (Basaglar KwikPen U-100 Insulin) 100 unit/mL (3 mL) injection pen INJECT SUBCUTANEOUSLY 42 UNITS ONCE DAILY 45 mL 04/13/20 25 Active glucosamine/sumanth dr federico valle (OSTEO BI-FLEX ORAL) Take by mouth. Activ e losartan-hydroCH LOROthiazide (Hyzaar) 100-25 mg per tablet Take 1 tablet by mouth 1 (one) time each day. Active gabapentin (NEURONTIN) 300 mg capsule Take 1 capsule (300 mg total) by mouth at bedtime. at bedtime 90 capsule 3 07/26/20 25 Active blood-glucose meter kit 1 Kit by Does not apply route daily. Use to check blood sugar Dx E11.29 08/20/19 24 025 Discontin ued(Formu david change) docusate sodium (COLACE) 100 mg tablet Take 1 Tablet by mouth as needed. - 025 Discontin ued(Side effects) FreeStyle Test test strip glucose blood test strips (FREESTYLE TEST STRIPS) strip TEST 3 TIMES DAILY 09/11/19 24 025 Discontin ued(Patie nt Discharge ) polyethylene glycol (MIRALAX) 17 gram packet Take by mouth as needed. 025 Discontin ued(Thera py completed ) gabapentin (NEURONTIN) 300 mg capsule TAKE 1 CAPSULE AT BEDTIME 90 capsule 12/16/19 25 025 Discontin ued(Reord er) polyethylene glycol (Golytely) 236-22.74-6.74 -5.86 gram solution Take 4L by mouth once for one dose. May substitue any PEG. Starting at 2PM the day before your procedure drink 1 8oz glasses at your own pace until you complete half of the gallon. Finish 2nd half of the gallon at 8PM. 4000 mL 04/20/20 025 Discontin ued(Thera py completed ) bisacodyL (DULCOLAX) 5 mg EC tablet Take 2 tablets by mouth right before beginning bowel prep. See instructions provided by the office 2 tablet 04/20/20 025 Discontin ued(Ambrose hicks) Active Problems Problem Noted Date Diagnosed Date Granulomatous disease, chronic 03/22/2025 Atherosclerosis of [place] ar teries of extremities with rest pain, right leg 03/22/2025 Murmur, cardiac 03/22/2025 Polyp of colon 03/02/2025 Basal cell carcinoma, face 03/02/2025 History of basal cell carcinoma 03/02/2025 Anticoagulated on Eliquis 03/02/2025 PAD (peripheral artery disease) 05/18/2024 Assessment & Plan (01/05/2025 5:10 PM EDT): Continue current regimen of aspirin, simvastatin. Patient is being monitored by vascular surgery. Coronary artery disease invo lving [place] coronary artery of [place] heart without angina pectoris 11/24/2023 Overview (01/19/2025): [...] Current [place] guidelines, including those from the [place] [employer] and [place] [employer], recommend OAC monotherapy (preferably with [...] through [facility] device clinic. Paroxysmal atrial fibrillation 11/24/2023 Assessment & Plan (06/09/2025 10:42 AM EDT): He has history of paroxysmal atrial fibrillation. He has an elevated chads Vascor of 5. He continues on Eliquis 5 mg twice daily. Will continue monitoring via the device. Assessment & Plan (02/02/2025 7:25 AM EDT): Detected on device. Asymptomatic. [id number] 5. Continue with apixaban. Assessment & Plan [...] S3 bioprosthetic valve with Dr. Ramsey at [facility]; complication of brief heart block post [...] hemiblock 08/01/2021 Diastolic dysfunction 07/27/2021 Diabetic retinopathy 04/12/2021 Overview (05/18/2024): OD>OS [facility] Squamous cell carcinoma of scalp 04/18/2020 Microalbuminuria 08/14/2018 Type 2 diabetes mellitus with cataract 8 Assessment & Plan (06/30/2024 12:30 PM EST): [...] Bacteremia due to Enterococcus 05/18/2024 03/22/2025 Sepsis 05/18/2024 03/22/2025 Systemic inflammatory response syndrome 05/18/2024 03/22/2025 Type 2 diabetes mellitus with hyperglycemia 01/13/2024 03/22/2025 Gallbladder mass 11/25/2023 03/22/2025 Assessment & Plan (03/22/2025 1:42 PM EDT): Cholecystectomy and the mass was a soft squishy gallstone Abnormal echocardiogram 03/02/2021 08/0 12/2024 Internal hemorrhoids 08/15/2014 025 Encounters Date Type Department Care Team Description 07/30/2025 10:15 AM EST Clinic Lab Collection Walk-In Clinic - [address] [phone] Diarrhea, unspecified type (Primary Dx) 07/29/2025 11:15 AM EST Lab Draw Station - [address] Osteoporosis, unspecified osteoporosis type, unspecified pathological fracture presence; Diarrhea, unspecified type 07/29/2025 Results Follow-Up Endocrinology - [place] [address] [place], [place] [phone] Anna Rodriguez PA 07/28/2025 12:40 PM EST Lab Draw Station - [address] Osteoporosis, unspecified osteoporosis type, unspecified pathological fracture presence; Diarrhea, unspecified type 07/28/2025 Telephone Endocrinology - [address] [phone] Anna Rodriguez PA 07/27/2025 Results Follow-Up Internal Medicine - [address] [phone] Roxana Correa NP 07/26/2025 1:30 PM EST Office Visit Internal Medicine - [address] [phone] Roxana Correa, BRO Diarrhea, unspecified type (Primary Dx); Osteoporosis, unspecified osteoporosis type, unspecified pathological fracture presence; Paroxysmal atrial fibrillation (CMS/HCC V24, CMS/HCC V28); Microalbuminuria; Immunization due; Anticoagulated on Eliquis; Mixed hyperlipidemia; Gastroesophageal reflux disease, unspecified whether esophagitis present; Pacemaker; Coronary artery disease involving [place] coronary artery of [place] heart without angina pectoris; Hypertension, unspecified type 07/26/2025 1:00 PM EST Lab Draw Station - [place] [address] [place], [place] Type 2 diabetes mellitus with cataract ([facility] V24, [facility] V28); Diarrhea, unspecified type 07/19/2025 4:30 PM EST Telemedicine Endocrinology [address] [phone] Anna Rodriguez PA Type 2 diabetes mellitus with cataract ([facility] V24, [facility] V28) (Primary Dx); Osteoporosis, unspecified osteoporosis type, unspecified pathological fracture presence 07/19/[address] [phone] Anna Rodriguez PA 07/05/2025 Telephone Internal Medicine - [facility] [address] [place] [address] Lalita Cintron MD 07/05/2025 Telephone Internal Medicine - [address] [phone] Lalita Cintron MD 06/24/2025 11:50 AM EST Ancillary Procedure [facility] - [facility] [address] [facility] [address] [place] [address] 06/21/2025 Telephone Gastroenterology - [place] [address] [facility] [address] [place] [phone] Hamilton Curtis MD 06/21/2025 Telephone Internal Medicine - [facility] [address] [place] [address] Lalita iCntron MD 06/15/2025 Telephone Internal Medicine - [facility] [phone] Claudette Gong RN 06/09/2025 9:10 AM EDT Office Visit [facility] [address] [facility] [address] [place] [phone] Alona Johnson NP Coronary artery disease involving [place] coronary artery of [place] heart without angina pectoris (Primary Dx); Paroxysmal atrial fibrillation (CMS/HCC V24, CMS/HCC V28); S/p TAVR (transcatheter aortic valve replacement), bioprosthetic; Hypertension, unspecified type; Hyperlipidemia, unspecified hyperlipidemia type 05/24/2025 9:38 AM EDT - 05/24/2025 11:59 PM EDT Hospital Encounter [facility] MRI [address] [place] [address] Neoplasm of uncertain behavior of left kidney Discharge Disposition: Home or Self Care 05/17/2025 Telephone Plastic & Reconstructive Surgery [facility] [address] [place] [address] Rylie Rudolph MA from Last 3 Months Immunizations Immunization Administration Dates Next Due Influenza trivalent, 0.5mL ( Fluad) 65yo and older 07/26/2025 Influenza trivalent, 0.5mL ( Fluzone High-dose) 65yo [...] CATARACT REMOVAL OTHER SURGICAL HISTORY Left PROCEDURE: LA ARTHRP ACETBLR/PROX FEM PROSTC AGRFT/ALGRFT OTHER SURGICAL HISTORY PROCEDURE: HISTORY OTHER; COMMENT: vocal cord surgery LUMBAR LAMINECTOMY 10/2017 PROCEDURE: HISTORICAL LUMB LAMINECTOMY; COMMENT: s/p lumbar decompression at L3-4, L4-5, and L5-S1 with Dr. Rockwell CHOLECYSTECTOMY PROCEDURE: LA LAPAROSCOPY SURG CHOLECYSTECTOMY Medical History Medical History [...] cord paralysis, uni lateral partial Diabetic retinopathy (CMS/ C V24, CMS/HCC V28) 04/12/2021 DX:Diabetic retinopathy (HCC ); COMMENT: OD>OS [facility] Other cardiomyopathies (CMS/ HCC V24, CMS/HCC V28) DX:Other cardiomyopathies (H CC); COMMENT: small heart blockages 02/2023 Diabetic neuropathy (CMS/HCC V24, CMS/HCC V28) DX:Diabetic neuropathy (HCC) Chronic ischemic heart disease D X:Chronic ischemic heart disease Aortic valve stenosis DX:Aortic valve stenosis Kidney lesion 11/04/2023 DX:Kidney lesion ; COMMENT: 1.2 x 1.3 x 1.2 cm lesion lower pole left kidney. Abnormal gallbladder ultrasound DX:Abnormal gallbladder ultrasound Skin cancer DX:Skin cancer A-fib (CMS/HCC V24, CMS/HCC V28) DX:A-fib (HCC) S/P TAVR (transcatheter aort ic valve replacement) DX:S/P TAVR (transcatheter a ortic valve replacement) Family History Medical History Relation Name Comments Other: myelitis Brother reverse myel itis Multiple sclerosis Daughter Coronary artery disease Father Other: Other Father exposed to Agen t or[place] in [facility] Prostate cancer Father Heart attack Mother Hypertension [...] Orientation Straight 09/16/2024 1: 46 PM EST Last Filed Vital Signs Vital Sign Reading Time Taken Comments Blood Pressure 110/64 07/26/2025 1:42 PM EST Pulse 75 07/26/2025 1:24 PM EST auto cuff Temperature 37 C (98.6 F) 07/26/2025 1:24 PM EST 98.6 Respiratory Rate 18 05/04/2025 2:17 PM EDT Oxygen Saturation 98% 06/09/2025 8:57 AM EDT Inhaled Oxygen Concentration - - Weight 84.4 kg (186 lb) 07/26/2025 1:24 PM EST Height 182.9 cm (6') 06/09/2025 8:57 AM EDT Body Mass Index 25.23 06/09/2025 8:57 AM EDT Plan of Treatment Upcoming Encounters Date Type Department Care Team (Late st Contact Info) Description 11/17/2025 11:00 AM EDT Ancillary Procedure [facility] - [address] [facility] [address] [place] [address] 01/31/2026 1:00 PM EDT [facility] [address] [place], [place] [phone] Lalita Cintron MD [address] [place], [place] 03/09/2026 11:30 AM EDT Office Visit Vascular Surgery - [place] [address] [place] [address] Guicho Russell MD [address] [place] [phone] Scheduled Procedures Name Priority Associated Diagnoses Date/Ti [...] Annual Wellness Visit 07/27/2022 COVID-19 Vaccine ( - 2024- season) 2025 06/12/2021, 10/14/2020, 09/22/2020 Social Influencers of Health Screening 07/08/2025 07/08/2024 Diabetes: Annual Retina Eye Exam 10/26/2025 10/26/2024 Diabetes: Blood Sugar Control Test (HGBA1C) 01/24/2026 07/26/2025, 01/18/2025, 09/01/2024, Additional history exists Diabetes: Annual Urine Albumin-Creatinine Ratio (uACR) 04/05/2026 04/05/2025, 07/30/2023 Falls Risk Assessment 05/04/2026 05/04/2025 Diabetes: Annual GFR (Glomerular Filtration Rate) 07/28/2026 07/28/2025, 07/26/2025, 04/05/2025, Additional history exists Hypertension/CHF/CAD Annual BMP Blood Test 07/28/2026 07/28/2025, 07/26/2025, 04/05/2025, Additional history exists Cholesterol Screening (Lipid Panel) 04/05/2030 04/05/2025, 07/30/2023 Colorectal Cancer Screening: Colonoscopy 05/04/2030 05/04/2025, 03/16/2024, 07/07/2019 Hepatitis A Vaccines Aged Out 10/27/2006, 09/22/19 07 No longer eligible based on patient's age to complete this topic Pneumococcal Vaccine: 50+ Years Completed 11/10/2019, 10/18/2016 Depression Screening Completed 07/19/2025 Influenza Vaccine Completed 07/26/2025, , 08/01/2022, Additional history exists HIB Vaccines Aged Out No longer eligi [...] this topic Medical Devices Implanted Type Area Sericulturist Device Identifier Shelf Expiration Date Model / Serial / Lot [employer]- 2272 Assurity Mri(Tm) [id number] Implanted: (Quantity not on file) Cardiac Pacemaker CBA [employer] 2272 ASSURITY MRI(TM) / [id number] / Procedures Procedure Name Priority Date/Time Associated Diagnosis Comments OVA AND PARASITE EXAMINATION Routine 07/30/2025 10:07 AM EST Diarrhea, unspecified type OVA AND PARASITE EXAMINATION Routine 07/29/2025 11:18 AM EST Osteoporosis, unspecified osteoporosis type, unspecified pathological fracture presence Diarrhea, unspecified type GIARDIA ANTIGEN Routine 07/28/2025 1:18 PM EST Diarrhea, unspecified type OVA AND PARASITE EXAMINATION Routine 07/28/2025 1:15 PM EST Diarrhea, unspecified type BASIC METABOLIC PANEL Routine 07/28/2025 12:53 PM EST Osteoporosis, unspecified osteoporosis type, unspecified pathological fracture presence CBC WITH AUTO DIFFERENTIAL Routine 07/26/2025 2:08 PM EST Diarrhea, unspecified type SEDIMENTATION RATE Routine 07/26/2025 2: 08 PM EST Diarrhea, unspecified type COMPREHENSIVE METABOLIC PANEL Routine 07/26/2025 2:08 PM EST Diarrhea, unspecified type CBC AND DIFFERENTIAL Routine 07/26/2025 2:08 PM EST Diarrhea, unspecified type HEMOGLOBIN A1C Routine 07/26/2025 1:05 PM EST Type 2 diabetes mellitus with cataract ([facility] V24, [facility] V28) CARDIAC DEVICE CHECK- REMOTE- MURJ Routine 06/24/2025 [...] microalbuminuria, with long-term current use of insulin ([facility] V24, [facility] V28) LIPID PANEL WITH REFLEX TO DIRECT LDL Routine 04/05/2025 8:47 AM EDT Type 2 diabetes mellitus with diabetic microalbuminuria, with long-term current use of insulin ([facility] V24, [facility] V28) from Last 3 Months or Most Recently Relevant to Health Maintenance Results * Ova and parasite examination (07/30/2025 10:07 AM EST) Only the most recent of3 resultswithin the time period is included. Pathologist [facility] Ova and Parasite No Ova or Parasite seen. 08/04/2025 2:13 PM EST [facility] Stool Rectum structure / Unknown Non-blood Collection / Unknown 07/30/2025 10:07 AM EST 07/30/2025 10:07 AM EST Narrative [facility] - 08/04/2025 2:13 PM EST Special test request required for Coccidia and Microsporidia. us Roxana Van NP LAB MICROBIOLOGY - GENERAL O RDERABLES Final Result [facility] [address] [place] [address], [place] [phone] * Giardia antigen (07/28/2025 1:18 PM EST) [facility] Giardia lamblia Antigen Negative Negative 07/28/2025 3:28 PM EST [facility] Stool Rectum structure / Unknown Non-blood Collection / Unknown 07/28/2025 1:18 PM EST 07/28/2025 1:18 PM EST us Roxana Van MECHANICAL RESEARCH ENGINEER LAB MICROBIOLOGY - GENERAL O RDERABLES Final Result Performing Organization Address City/[facility]/ZIP Co de Phone Number [facility] [address] [place] [address], [place] [phone] * (ABNORMAL) Basic metabolic panel (07/28/2025 12:53 PM EST) [facility] Sodium 143 133 - 145 mmol/L 07/28/2025 6:29 PM EST [facility] Potassium 4.3 3.5 - 5.5 mmol/L 07/28/2025 6:29 PM EST [facility] Chloride 103 96 - 110 mmol/L 07/28/2025 6:29 PM EST [facility] CO2 30 21 - 32 mmol/L 07/28/2025 6:29 PM [facility] Anion Gap 10 3 - 11 07/28/2025 6:29 PM [facility] Glucose 159(H) 70 - 100 mg/dL 07/28/2025 6:29 PM [facility] BUN 26(H) 5 - 25 mg/dL 07/28/2025 6:29 PM [facility] Creatinine 1.06 0.70 - 1.30 mg/dL 07/28/2025 6:29 PM [facility] eGFR 71 >=60 mL/min/1. 73m2 07/28/2025 6:29 PM [facility] Comment:Calculation based on the Chronic Kidney Disease Epidemiology Collaboration (CKD-EPI) equation refit without adjustment for race. BUN/Creatinine Ratio 24.5 07/28/2025 6:29 PM [facility] Calcium 9.6 8.5 - 10.5 mg/dL 07/28/2025 6:29 PM [facility] Blood Venous blood specimen / Unknown Venipuncture / Unknown 07/28/2025 12:53 PM EST 07/28/2025 12:53 PM EST us Anna PASTRANA LAB BLOOD ORDERABLES Final Result [facility] [address] [place] [address], * (ABNORMAL) CBC auto differential (07/26/2025 2:08 PM EST) WBC 6.4 4.8 - 10.8 [facility] LAB HEMETOLOGY METHOD 07/26/2025 2:45 PM [facility] RBC 5.00 4.50 - 5.50 M/mcL LAB HEMETOLOGY METHOD 07/26/2025 2:45 PM [facility] Hemoglobin 15.9 13.5 - 17.5 g/dL LAB HEMETOLOGY METHOD 07/26/2025 2:45 PM [facility] Hematocrit 45.2 42.0 - 54.0 % LAB HEMETOLOGY METHOD 07/26/2025 2:45 PM [facility] MCV 90.6 79.0 - 98.0 FL LAB HEMETOLOGY METHOD 07/26/2025 2:45 PM [facility] MCH 31.9 27.0 - 32.0 pcg LAB HEMETOLOGY METHOD 07/26/2025 2:45 PM [facility] MCHC 35.2 32.0 - 37.0 g/dL LAB HEMETOLOGY METHOD 07/26/2025 2:45 PM [facility] RDW 12.7 11.0 - 15.0 % LAB HEMETOLOGY METHOD 07/26/2025 2:45 PM [facility] Platelets 124(L) 130 - 400 K/mcL LAB HEMETOLOGY METHOD 07/26/2025 2:45 PM [facility] MPV 10.0 7.0 - 11.0 FL LAB HEMETOLOGY METHOD 07/26/2025 2:45 PM [facility] NRBC 0.0 <1.0 % LAB HEMETOLOGY METHOD 07/26/2025 2:45 PM [facility] NRBC Absolute 0.00 <0.10 K/mcL LAB HEMETOLOGY METHOD 07/26/2025 2:45 PM [facility] Neutrophils Relative 57.5 % LAB HEMETOLOGY METHOD 07/26/2025 2:45 PM [facility] Lymphocytes Relative 32.4 % LAB HEMETOLOGY METHOD 07/26/2025 2:45 PM [facility] Monocytes Relative 7.0 % LAB HEMETOLOGY METHOD 07/26/2025 2:45 PM [facility] Eosinophils Relative 2.0 % LAB HEMETOLOGY METHOD 07/26/2025 2:45 PM [facility] Basophils Relative 0.8 % LAB HEMETOLOGY METHOD 07/26/2025 2:45 PM [facility] Immature Granulocytes Relative 0.3 % LAB HEMETOLOGY METHOD 07/26/2025 2:45 PM [facility] Neutrophils Absolute 3.68 1.50 - 7.00 K/mcL LAB HEMETOLOGY METHOD 07/26/2025 2:45 PM [facility] Lymphocytes Absolute 2.08 1.00 - 5.00 K/mcL LAB HEMETOLOGY METHOD 07/26/2025 2:45 PM [facility] Monocytes Absolute 0.45 0.20 - 1.00 K/mcL LAB HEMETOLOGY METHOD 07/26/2025 2:45 PM EST [facility] Eosinophils Absolute 0.13 0.00 - 0.50 K/mcL LAB HEMETOLOGY METHOD 07/26/2025 2:45 PM [facility] Basophils Absolute 0.05 0.00 - 0.20 K/mcL LAB HEMETOLOGY METHOD 07/26/2025 2:45 PM [facility] Immature Granulocytes Absolute 0.02 0.00 - 0.03 K/mcL LAB HEMETOLOGY METHOD 07/26/2025 2:45 PM EST [facility] Blood Venous blood specimen / Unknown Venipuncture / Unknown 07/26/2025 2:08 PM EST 07/26/2025 2:08 PM EST us Roxana Van NP LAB BLOOD ORDERABLES Final R esult [facility] [address] [place] [address], * Sedimentation rate (07/26/2025 2:08 PM EST) Sed Rate 10 0 - 20 mm/hr LAB HEMETOLOGY METHOD 07/26/2025 2:51 PM [facility] Blood Venous blood specimen / Unknown Venipuncture / Unknown 07/26/2025 2:08 PM EST 07/26/2025 2:08 PM EST us Roxana Van MECHANICAL RESEARCH ENGINEER LAB BLOOD ORDERABLES Final R esult [facility] [address] [place] [address], * (ABNORMAL) Comprehensive metabolic panel (07/26/2025 2:08 PM EST) Pathologist [facility] Sodium 140 133 - 145 mmol/L 07/26/2025 7:00 PM [facility] Potassium 3.7 3.5 - 5.5 mmol/L 07/26/2025 7:00 PM [facility] Chloride 102 96 - 110 mmol/L 07/26/2025 7:00 PM [facility] CO2 28 21 - 32 mmol/L 07/26/2025 7:00 PM [facility] Anion Gap 10 3 - 11 07/26/2025 7:00 PM [facility] Glucose 101(H) 70 - 100 mg/dL 07/26/2025 7:00 PM [facility] BUN 21 5 - 25 mg/dL 07/26/2025 7:00 PM [facility] Creatinine 0.99 0.70 - 1.30 mg/dL 07/26/2025 7:00 PM [facility] eGFR 77 >=60 mL/min/1. 73m2 07/26/2025 7:00 PM [facility] Comment:Calculation based on the Chronic Kidney Disease Epidemiology Collaboration (CKD-EPI) equation refit without adjustment for race. BUN/Creatinine Ratio 21.2 07/26/2025 7:00 PM [facility] Calcium 9.3 8.5 - 10.5 mg/dL 07/26/2025 7:00 PM [facility] AST (SGOT) 31 10 - 42 unit/L 07/26/2025 7:00 PM [facility] ALT (SGPT) 32 10 - 60 unit/L 07/26/2025 7:00 PM [facility] Alkaline Phosphatase 94 42 - 121 unit/L 07/26/2025 7:00 PM [facility] Total Protein 6.9 6.0 - 8.0 g/dL 07/26/2025 7:00 PM [facility] Albumin 4.2 3.2 - 5.0 g/dL 07/26/2025 7:00 PM [facility] Total Bilirubin 0.8 0.0 - 1.4 mg/dL 07/26/2025 7:00 PM [facility] Blood Venous blood specimen / Unknown Venipuncture / Unknown 07/26/2025 2:08 PM EST 07/26/2025 2:08 PM EST us Roxana Van NP LAB BLOOD ORDERABLES Final R esult [facility] [address] [place] [address], * (ABNORMAL) Hemoglobin A1c (07/26/2025 1:05 PM EST) Hemoglobin A1C 6.6(H) <6.5 % LAB CHEMISTRY METHOD 07/28/2025 6:18 PM [facility] Mean Bld Glu Estim. 143 mg/dL LAB CHEMISTRY METHOD 07/28/2025 6:18 PM [facility] Blood Venous blood specimen / Unknown Venipuncture / Unknown 07/26/2025 1:05 PM EST 07/26/2025 1:05 PM EST us Anna PASTRANA LAB BLOOD ORDERABLES Final Result [facility] [address] [place] [address], * Cardiac device check - Remote- MURJ (06/24/2025 11:45 AM EST) Date Time Interrogation Session [id number] CV DEVICE CHECK Type Interrogation Session Remote Scheduled CV DEVICE CHECK Implantable Pulse Generator Sericulturist St.Du CV DEVICE CHECK Implantable Pulse Generator Type IPG CV DEVICE CHECK Implantable Pulse Generator Model 2272 Assurity MRI(TM) CV DEVICE CHECK Implantable Pulse Generator Serial Number [id number] CV DEVICE CHECK Implantable Pulse Generator Implant Date 20231114 CV DEVICE CHECK Battery Remaining Percentage 88.00 CV DEVICE CHECK Battery Remaining Longevity 112.0 CV DEVICE CHECK Battery Voltage 2.990 CV D EVICE CHECK Battery CODING FILE CLERK Trigger 2.600 CV DEVICE CHECK Battery Status Middle of Service CV DEVICE CHECK Angel Statistic RA Percent Paced 49.00 CV DEVICE CHECK Angel Statistic RV Percent Paced 99.00 CV DEVICE CHECK Atrial Tachy Statistic AT/AF [place] Line Percent 1.00 CV DEVICE CHECK Lead Channel [...] Signed Date: 05/26/2025 12:47 ET Workstation ID: [id number] Transcribed By: Self Edit Transcribed Date: 05/26/2025 [...] lower pole of the left kidney measuring [id number] mm in diameter. This is unchanged dating [...] Signed Date: 05/26/2025 12:47 ET Workstation ID: [id number] Transcribed By: Self Edit Transcribed Date: 05/26/2025 12:30 ET Brandee Flanagan NP IM MRI PROCEDURES Final Result * COLONOSCOPY Anesthesia - MAC; [facility] ENDOSCOPY (05/04/2025 1:56 PM EDT) Anatomical Region Laterality Modality Other 05/04/2025 1:38 PM EDT Impressions 05/04/2025 1:56 PM EDT - Diverticulosis in the entire examined colon. - Internal hemorrhoids. - No specimens collected. Recommendation: - Repeat colonoscopy Deferred due to age. - Use fiber, for example Citrucel, Fibercon, Konsyl or Metamucil. Narrative 05/04/2025 1:[address] [facility] GI Patient Name: Bita Huerta Procedure [...] or abscess without bleeding CPT copyright 2020 [employer]. All rights reserved. The codes documented in this report are preliminary and upon storm sash maker review may be revised to meet current compliance requirements. Hamilton Curtis MD 05/04/2025 1:56:50 PM This report has been signed electronically.Hamilton Curtis MD Number of Addenda: 0 Note Initiated On: 05/04/2025 1:38 PM Scope In: Scope Out: Endoscopy Department at [facility] - [address] [place] [phone] Procedure Note Hamilton Curtis MD - 05/04/2025 [facility] GI Patient Name: Bita Huerta Procedure [...] or abscess without bleeding CPT copyright 2020 [employer]. All rights reserved. The codes documented in this report are preliminary and upon storm sash maker reviewmay be revised to meet current compliance requirements. Hamilton Curtis MD 05/04/2025 1:56:50 PM This report has been signed electronically.Hamilton Curtis MD Number of Addenda: 0 Note Initiated On: 05/04/2025 1:38 PM Scope In: Scope Out: Endoscopy Department at [facility] - [address] [place] [phone] IMPRESSION: - Diverticulosis in the entire examined colon. - Internal hemorrhoids. - No specimens collected. Recommendation: - Repeat colonoscopy Deferred due to age. - Use fiber, for example Citrucel, Fibercon, Konsylor Metamucil. us Hamilton Curtis MD GI~PROCEDURE ORDERABLES Final Re sult * Lipid panel with reflex to direct LDL (04/05/2025 8:47 AM EDT) Cholesterol 150 0 - 200 mg/dL LAB CHEMISTRY METHOD 04/05/2025 12:40 PM EDT [facility] Triglycerides 115 0 - 150 mg/dL LAB CHEMISTRY METHOD 04/05/2025 12:40 PM EDT [facility] HDL 54 >=40 mg/dL LAB CHEMISTRY METHOD 04/05/2025 12:40 PM EDT [facility] LDL Calculated 73 0 - 100 mg/dL LAB CHEMISTRY METHOD 04/05/2025 12:40 PM EDT [facility] Comment:Estimated LDL Calcul ated using equation: Total cholesterol - HDL cholesterol - (Triglycerides/5) VLDL Cholesterol Leonel 23 mg/dL LAB CHEMISTRY METHOD 04/05/2025 12:40 PM EDT [facility] Non HDL Chol. (LDL+VLDL) 96 <145 mg/dL LAB CHEMISTRY METHOD 04/05/2025 12:40 PM EDT [facility] Chol/HDL Ratio 2.8 0.0 - 4.4 LAB CHEMISTRY METHOD 04/05/2025 12:40 PM T [facility] Blood Venous blood specimen / Unknown Venipuncture / Unknown 04/05/2025 8:47 AM EDT 04/05/2025 8:47 AM EDT us Rodrigo Winston MD LAB BLOOD ORDERABLES Brandie l Result [facility] [address] [place] [address], * (ABNORMAL) Microalbumin creatinine urine ratio (04/05/2025 8:47 AM EDT) Creatinine, Urine 111.0 mg/dL LAB CHEMISTRY METHOD 04/05/2025 1:47 PM EDT [facility] Microalb, Ur 29.9(H) 0.0 - 29.0 mg/L LAB CHEMISTRY METHOD 04/05/2025 1:47 PM EDT [facility] Microalb/Crea t Ratio 27 <30 mg/g creat LAB CHEMISTRY METHOD 04/05/2025 1:47 PM EDT [facility] Urine Urine specimen obtained by clean catch procedure / Unknown Non-blood Collection / Unknown 04/05/2025 8:47 AM EDT 04/05/2025 8:47 AM EDT us Rodrigo Winston MD LAB URINE ORDERABLES Brandie xiomara Result [facility] [address] [place] [address], from Last 3 Months or Most Recently Relevant to [place] [id number] [facility] Advance Directives Documents on File Type Date Recorded 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 Care Teams Windows Application Administrator Relationship Specialty Start Date End Date Lalita Cintron MD [address] [place] [phone] PCP - General Internal Medicine 03/01/25
--- OUTSIDE RECORDS SUMMARY | 2025-08-04 14:56 | XMS_ITS | Clinical Summary ---
Author Organization [facility] Address [address] [place] [address] Care Team Providers Care Hand Upper And Bottom Lacer Name Role Phone Rodrigo Winston MD Primary [...] 11/20/2019 COVID-19 Vaccine (2024-2 6 season) 2025 Hepatitis B Vaccines Aged Out No long er eligible based on patient's age to complete this topic Care Teams Hand Upper And Bottom Lacer Relationship Specialty Start Date End Date Rodrigo Winston MD PCP - General
--- OUTSIDE RECORDS SUMMARY | 2025-08-04 14:56 | XMS_ITS | Encounter Summary ---
Author Organization [facility] Address [address] [place] [address] Care Team Providers Care Solid Center Winder Name Role Phone Lalita Cintron MD Primary Care Provider [phone] Encounter Details Date Type Department Care Team ([facility] st Contact Info) Description 07/29/2025 Results Follow-Up [address] [address] Anna Rodriguez PA [address] [place] [address] Social History Tobacco Use Types Packs/Day Years [...] for your loved ones. For example, child welfare manager or elderly care for an older adult? [...] PM EST documented as of this encounter Plan of Treatment Upcoming Encounters Date Type Department Care Team (Late st Contact Info) Description 11/17/2025 11:00 AM EDT Ancillary Procedure [facility] - [address] [facility] [address] [place] [address] 01/31/2026 1:00 PM EDT Office Visit Internal Medicine - [facility] [address] [place], [place] [phone] Lalita Cintron MD [address] [place], [place] 03/09/2026 11:30 AM EDT Office Visit Vascular Surgery - [place] [address] [place] [phone] Guicho Russell MD [address] [place] [phone] Scheduled Procedures Name Priority Associated Diagnoses Date/Ti me EXCISION LESION EAR Basal cell carcinoma, face REPAIR LACERATION Basal cell carcinoma, face documented as of this encounter Visit Diagnoses Not on filedocumented in this encounter Additional Health Concerns Assessment Noted Time PHQ-9 Depression Total Score: 0 12/30/19 9:51 AM EDT documented as of this encounter Care Teams Solid Center Winder Relationship Specialty Start Date End Date Lalita Cintron MD [address] [place] [address] PCP - General Internal Medicine 03/01/25 documented as of this encounter
--- OUTSIDE RECORDS SUMMARY | 2025-08-04 14:56 | XMS_ITS | Encounter Summary ---
Author Organization [facility] Address [address] [place] [address] Care Team Providers Care Senior Java Programmer Name Role Phone Lalita Cintron MD Primary Care Provider [phone] Reason for Visit * Reason Onset Date Comments Reclast 07/28/2025 Encounter Details Date Type Department Care Team ([facility] Contact Info) Description 07/28/2025 Telephone [facility] [address] [place] [address] Anna Rodriguez PA [address] [place] [address] Social History Tobacco Use Types Packs/Day Years [...] care for your loved ones. For example, attendant children's institution or elderly care for an older adult? [...] as of this encounter Progress Notes * Maria Teresa Rinaldi RN - 07/29/2025 10:06 AM EST Message has already been sent to Sakina cheng 09/16/25 * aCss Pino - 07/28/2025 3:58 PM EST Endocrine Call Primary endocrine provider: Anna Rodriguez PA-C Is the endocrine provider in the office toady?: yes Who is calling? Spouse: Name: Celeste . If not the patient or parent/guardian please check for authorization to share/verbal release. Why is the person calling? Calls regarding Prolia or recast orders, status on medication, appointments. Please forward to endocrine nurse pool (p [phone]). Pt spouse Celeste calling on behalf of pt stating per last appt he would receive a call to discuss reclast. Please call pt at [phone]. documented in this encounter Plan of Treatment Upcoming Encounters Date Type Department Care Team ([facility] st Contact Info) Description 11/17/2025 11:00 AM EDT Ancillary Procedure [facility] - [facility] [address] [facility] [address] [place] [address] 01/31/2026 1:00 PM EDT Office Visit Internal Medicine - [facility] [address] [place], [place] [phone] Lalita Cintron MD [address] [place], [place] 03/09/2026 11:30 AM EDT Office Visit Vascular Surgery - [place] [address] [facility] [address] [place] [address] Guicho Russell MD [address] [place] [phone] Scheduled Procedures Name Priority Associated Diagnoses Date/Ti me EXCISION LESION EAR Basal cell carcinoma, face REPAIR LACERATION Basal cell carcinoma, face documented as of this encounter Visit Diagnoses Not on filedocumented in this encounter Additional Health Concerns Infection Onset Date Last Indicated Resolved Time C. difficile Rule-Out 07/28/2025 07/28/20252024 3:21 PM EST Assessment Noted Time PHQ-9 Depression Total Score: 0 12/30/19 9:51 AM EDT documented as of this encounter Care Teams Senior Java Programmer Relationship Specialty Start Date End Date Lalita Cintron MD [address] [place] [address] PCP - General Internal Medicine 03/01/25 documented as of this encounter
--- OUTSIDE RECORDS SUMMARY | 2025-08-04 14:56 | XMS_ITS | Clinical Summary ---
Author Organization [facility] Prior to 01/15/25 Address [address] [place] [address] Care Team Providers Care Senior Informatica Developer Name Role Phone Rodrigo Winston MD Primary Care Provider [phone] Allergies Active Allergy Reactions Criticality Noted Date Comments Dust 12/18/2018 Other reaction(s): UNKNOWN Molds & Smuts 08/01/2021 [place] 12/18/2018 Other reaction(s): UNKNOWN Medications Medication Sig [...] age to complete this topic Care Teams Senior Informatica Developer Relationship Specialty Start Date End Date Rodrigo Winston MD [address] [place] [address] PCP - General Internal Medicine 04/10/23
--- OUTSIDE RECORDS SUMMARY | 2025-08-04 14:56 | XMS_ITS | Patient Health Record ---
Author Organization [facility] Address [address] [facility] [place] [address] Care Team Providers Care City Planning Aide Name Role Phone Lalita Cintron Primary Care Provider Chacha Allen Unavailable [phone] Allergies Allergen (clinical drug ingredient) Drug/Non Drug Allergy documented on EMR Reaction Allergy Type Onset Date Status Cat dander Cat Dander Unknown Allergy Active Dog dander Dog Dander Unknown Allergy Active Dust Mites Unknown Allergy Active Mold Unknown Allergy Active Results Component Value Reference Range Notes HEMOGLOBIN A1C (GLYCOHEMOGLO BIN) Reviewed date:03/22/2025 11:28:35 AM Interpretation: Performing Lab: Notes/Report: HEMOGLOBIN A1C % (HH) 7.2 HEMOGLOBIN A1C (GLYCOHEMOGLO BIN) Reviewed date:07/26/2025 10:57:38 AM Interpretation: Performing Lab: Notes/Report: HEMOGLOBIN A1C % (HH) 6.9 Reason For Referral No Information Medications Medication SIG (Take, Route, Frequency, Duration) Notes Start Date End Date Status Osteo Bi-Flex Adv Double St Active Lantus 100 UNIT/ML Subcutaneous 03/15/2014 Not-Taking Fluticasone Propionate Active oxyCODONE HCl Not-Ta timothy Extra Depth Diabetic Shoes with 3 Pair Custom heat-molded multi-density innersoles for 1 year Dx: N ot-Taking Extra Depth Orthopedic Shoes (1 Pair) with Customized Heat Molded Multidensity Innersoles (3 Pair) Dx: NIDDM/Polyneuropathy (E11.42), Hammertoe Foot Deformity (M20.41,M20.42), Preulcerative Skin Lesion(s) (L85.1); Duration: 365 days 03/22/2025 Active NovoLOG Active Econazole Nitrate 1 % 1 application to affected area Externally Once a day hs; Duration: 30 days Not-Taking Losartan Potassium-HCTZ 100-12.5 MG 1 tablet Orally Once a day 03/15/2014 Active Econazole Nitrate 1 % 1 application to affected area Externally Once a day hs; Duration: 30 days 02/09/2016 Not-Taking Simvastatin 40 MG Orally Once a day 03/15/2014 Active HumaLOG KwikPen 100 UNIT/ML Subcutaneous 03/15/2014 Not-Taking Pantoprazole Sodium 40 MG 1 tablet Orally Once a day Active Econazole Nitrate 1 % 1 application to affected area Externally Once a day hs; Duration: 30 days Not-Taking Diclofenac Potassium Not-Taking Claritin Not-Taking Calcium Active ZyrTEC Not-Taking amLODIPine Besylate 5 MG 1 tablet Orally Once a day 03/15/2014 Active Omeprazole-Sodium Bicarbonate Not-Taking Basaglar KwikPen Act justin Docusate Sodium Acti ve Vitamin E Not-Taking Tamsulosin HCl 0.4 MG 1 capsule Orally O nce a day Active Vitamin D Not-Taking Gabapentin 100 MG 1 capsule Orally Onc e a day; Duration: 30 day(s) Active Centrum Silver Activ e Baclofen Not-Taking Mucinex Active Vitamin A Not-Taking eliquis 5 mg Active Levemir Not-Taking Aspir-81 Active Vitamin C Not-Taking MiraLax Active Vitamin B Complex No t-Taking Walker as directed Not-Taki ng Vitamin D3 Active Rocephin Not-Taking Ampicillin Sodium 10 GM as directed Intravenous Not-Taking Lantus 80 ml Subcutaneous Not- Taking Immunizations Vaccine Route Administration Date Status Comme [...] Problem Acquired hammer toe of right foot (3250607924841098 ) Other hammer toe(s) (acquired), right foot (M20.41) Active confirmed Response to treatment, [facility] t Problem Acquired hammer toe of left foot (6516185218961234 ) Other hammer toe(s) (acquired), left foot (M20.42) [facility] Problem Polyneuropathy due to diabetes mellitus type I (405659391) Type 1 diabetes mellitus with diabetic polyneuropathy (E10.42) Active confirmed Problem Polyneuropathy due to type 2 diabetes mellitus (635159405) Type 2 diabetes mellitus with diabetic polyneuropathy (E11.42) Active confirmed Vital Signs Blood pressure diastolic 65 mm Hg 03/22/2025 Height 6 ft 2 in in 07/26/2025 Blood pressure systolic 135 mm Hg 03/22/2025 Weight 180 lbs 07/26/2025 BMI 23.11 kg/m2 07/26/2025 Procedures Procedure Date Ordered Date Performed Result Body Sit e 30805-EMTMCXO NAIL, 6 OR MORE 11/30/2024 N/A 67179-TCLV SKIN LESIONS, 2 TO 4 11/30/2024 N/A Encounters Encounter Location Date Provider Diagnosis [facility] [address] [place] [phone] 07/26/2025 Chacha Lo [facility] [address] [place] [phone] 11/30/2024 Chacha Lo Type 2 diabetes mellitus with diabetic polyneuropathy E11.42 ; Tinea unguium B35.1 ; Other hammer toe(s) (acquired), right foot M20.41 and Other hammer toe(s) (acquired), left foot M20.42 [facility] [address] [place] [phone] 03/22/2025 Chacha Lo Other hammer toe(s) (acquired), right foot M20.41 ; Other hammer toe(s) (acquired), left foot M20.42 ; Type 2 diabetes mellitus with diabetic polyneuropathy E11.42 and Tinea unguium B35.1 Assessments Encounter Date Diagnosis (ICD Code) Assessment Notes Treatment Notes Treatment Clinical Notes Section Notes 11/30/2024 Type 2 diabetes mellitus with diabetic [...] X ray : Foot, right 3V 10/17/2020 51254-WYRGUOA NAIL, 6 OR MORE 04/21/2018 96368-TCNEWNK NAIL, 6 OR MORE 08/03/2024 95119-UJEYEYM NAIL, 6 OR MORE 11/30/2024 62998-UCHNKNH NAIL, 6 OR MORE 04/28/2015 19908-CWNRPGM NAIL, 6 OR MORE 05/13/2014 83074-JWCCWYO NAIL, 6 OR MORE 01/06/2015 51270-STSOCHO NAIL, 6 OR MORE 08/04/2015 04185-FIKOFCW NAIL, 6 OR MORE 11/03/2015 36101-SVZLWUY NAIL, 6 OR MORE 02/09/2016 98711-JJPBECQ NAIL, 6 OR MORE 08/23/2016 52659-MAAHLXP NAIL, 6 OR MORE 05/10/2016 30168-ZNCCRVE NAIL, 6 OR MORE 04/22/2017 73278-ZKGJFXL NAIL, 6 OR MORE 08/26/2017 48493-JREOFMQ NAIL, 6 OR MORE 12/23/2017 51754-GCBAEIH NAIL, 6 OR MORE 08/04/2018 14405-Enlczjsv Plate 05/13/2014 79595-Xqstlqtz Plate Each Additional 72192-OLGQ SKIN LESIONS, OVER 4 04/28/20 15 26350-YNVX SKIN LESIONS, OVER 4 02/09/20 16 70415-TXQU SKIN LESIONS, OVER 4 11/03/19 16 55889-JUIL SKIN LESIONS, OVER 4 01/07/20 15 89042-TOZP SKIN LESIONS, OVER 4 12/09/19 19 44642-JNRU SKIN LESIONS, OVER 4 06/08/20 19 61426-WYVG SKIN LESIONS, OVER 4 12/28/19 20 72612-XSZF SKIN LESIONS, OVER 4 06/27/20 20 28809-KNMP SKIN LESIONS, OVER 4 04/21/20 18 43476-IMGX SKIN LESIONS, OVER 4 12/24/19 18 10044-OING SKIN LESIONS, OVER 4 08/26/19 18 35551-SIOP SKIN LESIONS, OVER 4 05/10/20 16 23908-LVTI SKIN LESIONS, OVER 4 08/23/19 17 85975-TLED SKIN LESIONS, OVER 4 12/21/19 17 48333-WSLV SKIN LESIONS, OVER 4 04/22/20 17 68701-JCFU SKIN LESIONS, OVER 4 08/04/20 18 06923-CAJB SKIN LESIONS, OVER 4 04/24/20 21 63275-PQJP SKIN LESIONS, OVER 4 08/28/19 22 45185-UMKW SKIN LESIONS, 2 TO 4 12/01/19 25 43626-ACZR SKIN LESIONS, 2 TO 4 08/03/20 24 99323-BNJV SKIN LESIONS, 2 TO 4 08/04/20 15 67046-ACBP SKIN LESIONS, 2 TO 4 05/13/20 14 39404,Z5900-UQA TENDON SHEATH/LIGAMENT 0 04/28/2015 84820,R0792-EAC TENDON SHEATH/LIGAMENT 1 39637, J0702- Neuroma/Injection 06/17/20 14 Next Appt Details Provider Name:Chacha Kirkland osorio, 11/29/2025 11:00:00 AM, [address] [facility], [address], [place], [address], Insurance Providers Payer Name Payer Address Payer Phone Subscriber Number Group Number Insured Name Patient Relationship to Insured Coverage Start Date Coverage End Date Medicare National Govt [employer] [address] [place] [address] [id number] Gm Barba Self - patient is the insured 4 [employer] Blue [employer] [address] [place] [address] [id number] Gm Barba Self - patient is the [...] Hospitalization History Reason Date(Month/Year) calcified artery,leg 11/2024 [facility], bacteria in bloodstream 2023 [facility]- bacteria in bloodstream, 6 day stay 2023 [facility] Back surgery 02/2019 [facility]- Spinal Stenosis Sx 11/2017 [facility] - [facility] Hip Re[facility] left [facility]- Colonoscopy & Endoscopy 09/01 [facility]- Bone scan right foot 07/05/14 [facility] MRI right foot 07/21/14 [facility] Xrays right foot 07/02/14
--- OUTSIDE RECORDS SUMMARY | 2025-08-04 14:56 | XMS_ITS | Encounter Summary ---
Author Organization [facility] Address [address] [place] [address] Care Team Providers Care Medical Practice Manager Name Role Phone Lalita Cintron MD Primary Care Provider [phone] Encounter Details Date Type Department Care Team ([facility] st Contact Info) Description 05/17/2025 Telephone Plastic & Reconstructive Surgery - [place] [address] [place] [address] Rylie Rudolph MA Social History Tobacco Use Types Packs/Day [...] ed Within the last 3 months, ho carleen many times did you visit the emergency [...] for your loved ones. For example, child nurse or elderly care for an older adult? [...] as of this encounter Progress Notes * ZEINA Mendiloa - 08/03/2025 12:59 PM EST Called patient, he is happy to reschedule, hoping to have surgery in August if possible. * Rylie Rudolph MA - 05/17/2025 11:12 AM EDT Patient called in informed that his procedure in minor OR has been cancelled due to medical leave of provider. Pt will see if he can be seen anywhere else but also wishes to be added to the wait listjust incase. documented in this encounter Plan of Treatment Upcoming Encounters Date Type Department Care Team (Late st Contact Info) Description 11/17/2025 11:00 AM EDT Ancillary Procedure [facility] - [facility] [address] [facility] [address] [place] [address] 01/31/2026 1:00 PM EDT Office Visit Internal Medicine - [address] [phone] Lalita Cintron MD [address] [place], [place] 03/09/2026 11:30 AM EDT Office Visit Vascular Surgery - [place] [address] [facility] [address] [place] [address] Guicho Russell MD [address] [place] [phone] Scheduled Procedures Name Priority Associated Diagnoses Date/Ti [...] documented as of this encounter Care Teams Medical Practice Manager Relationship Specialty Start Date End Date Lalita Cintron MD [address] [place] [address] PCP - General Internal Medicine 03/01/25 documented as of this encounter
--- OUTSIDE RECORDS SUMMARY | 2025-08-04 14:56 | XMS_ITS ---
Author Organization [address] [facility] Address [address] [place] [address] Phone Care Team Providers Care Station Tender Name Role Phone Lalita Cintron MD Primary Care Provider [phone] Active Problems Problem Noted Date Diagnosed Date Granulomatous disease, chronic 03/22/2025 Atherosclerosis of iliamna ar teries of extremities with rest pain, right leg 03/22/2025 Murmur, cardiac 03/22/2025 Polyp of colon 03/02/2025 Basal cell carcinoma, face 03/02/2025 History of basal cell carcinoma 03/02/2025 Anticoagulated on Eliquis 03/02/2025 PAD (peripheral artery disease) 05/18/2024 Assessment & Plan (01/05/2025 5:10 PM EDT): Continue current regimen of aspirin, simvastatin. Patient is being monitored by vascular surgery. Coronary artery disease invo lving iliamna coronary artery of iliamna heart without angina pectoris 11/24/2023 Overview (01/19/2025): [...] Current [place] guidelines, including those from the [place] and [place] [employer], recommend OAC monotherapy (preferably with [...] 7:25 AM EDT): Detected on device. Asymptomatic. [id number] 5. Continue with apixaban. 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 Orders: Hemoglobin A1c; Future Feranndo's esophagus 04/30/2018 Assessment & Plan (01/05/2025 5:10 [...]
== END 2025-08-04 11:57 | disposition home or self-care (01) ==
LOC: HO.HPHYS 11:22
PROVIDERS: Visit Provider Physical Medicine & Rehabilitation
DX: M48.062 Spinal stenosis, lumbar region with neurogenic claudication (principal); M54.16 Radiculopathy, lumbar region
CPT/HCPCS: 99214

== ENCOUNTER → 2025-08-04 11:21 | Outpatient (BNVA) | payer MEDICARE, BC, SELFPAY | PROVIDERS: Visit Provider Physical Medicine & Rehabilitation | DX: M48.062 Spinal stenosis, lumbar region with neurogenic claudication (principal); M54.16 Radiculopathy, lumbar region; G89.29 Other chronic pain | CPT/HCPCS: 99212 ==